=== PATIENT | female | born 1990 | race Caucasian/White ===

== ENCOUNTER 2022-06-13 13:20 | Outpatient (CLI) | payer BC, SELFPAY ==
--- OUTSIDE RECORDS SUMMARY | 2022-06-13 13:26 | XMS_ITS | Clinical Summary ---
:1990 Author Organization [employer] [place] [address] Care Team Providers Name Role Phone Pcp, No Primary Care Provider Unavailable Allergies Active Allergy Reactions Severity Noted Date Comments Amoxicillin Hives 01/04/2010 Azithromycin Hives 01/04/2010 Ciprofloxacin Hives 01/04/2010 Sulfa (Sulfonamide Antibiotics) Hives 2 Medications No known medications Active Problems Problem Noted Date Luisa (monopolar) single episode or unspecified Encounters Date Type Specialty Care Team Description 04/08/2022 Office Visit Cass Emery MD Throa t Problem (X 1 week/Sores on t ongue that started on ) 04/08/2022 Travel from Last 3 Months Immunizations Name Administration Dates Next Due Influenza, IIV3 (Age >=3 years) 10/09/2008 Family History Medical History Relation Name Comments Diabetes Maternal Grandmother Relation Name Status Comments Maternal Grandmother Social History Tobacco Use Types Packs/Day Years Used Date Current Every Day Smoker Cigarettes 0.5 Smokeless Tobacco: Never Used Alcohol Use Standard Drinks/Week Comments No 0 (1 standard drink = 0.6 oz pure alcoho l) Sex Assigned at Date Recorded Not on file Obstetrics History Para Term AB IAB SAB Ectopic Multiple Living Live Births 1 1 1 0 0 0 0 0 0 1 Date Outcome GA Total Labor/2nd/3rd Weight Sex Delivery Anes PTL Nadya A 1 A5 Name Clin Labor 12/26 Term 39w 6h 00m/ 3.35 kg M Vag Epid /2008 0d (7 lb 6 ral oz) Last Filed Vital Signs Vital Sign Reading Time Taken Comments Blood Pressure 104/71 04/08/2022 2:12 PM CDT Pulse 105 04/08/2022 2:12 PM CDT Temperature 36.9 ??C (98.4 ??F) 04/08/2022 2:12 PM CDT Respiratory Rate - - Oxygen Saturation 97% 04/08/2022 2:12 PM CDT Inhaled Oxygen Concentration - - Weight 40.7 kg (89 lb 12.8 oz) 04/08/2022 2:12 PM CDT Height 154.9 cm (5' 1) 04/08/2022 2:12 PM CDT Body Mass Index 16.97 04/08/2022 2:12 PM CDT Plan of Treatment Health Maintenance Due Date Last Done Comments COVID-19 vaccine series (#1) 1988 Pneumococcal series for age 19-64 1994 (1 - PCV) Tdap 1999 Depression screening for age 12+ 2000 Hepatitis C screening for age 0703/30/2006 18-79 Tetanus booster 2008 Influenza for age 9-49 05/19/2022 10/09/2008 Pap test for age 21-65 07/02/2022 07/02/2019, 07/02/2019, 05/01/2018, Additional history exists BMI (ht and wt on same day) for 04/08/2023 04/08/2022 age 18+ Procedures Procedure Name Priority Date/Time Associated Diagnosis Comme nts THROAT RAPID STREP Routine 04/08/2022 2:17 PM Sore throat Res ults for this ONLY CLINIC CDT procedure are i n the results section. from Last 3 Months Results THROAT RAPID STREP ONLY CLINIC (04/08/2022 2:17 PM CDT) Analysis Performed At Patho logist Time Signature THROAT RAPID Negative 04/08/2022 [facility] STREP A 2:31 PM CDT [facility] Specimen Anatomical Collection Method Collection Time Receive d Time (Source) Location / / Volume Laterality Throat SPECIMEN FROM Non-Blood / 04/08/2022 2:17 PM 04/08/20 2:21 THROAT / Unknown Unknown CDT PM CDT Cass Emery MD MICROBIOLOGY Performing Organization Address City/State/ZIP Code Phon e Number [facility] [address] [place] [address] from Last 3 Months Insurance Payer Benefit Plan / Subscriber ID Effective Dates Phone Addre ss Type Group [id number] 2017-Present [address] [place] [address] Care Teams Pollution Control Technician Relationship Specialty Start Date End Date Pcp, No PCP - General 04/08/22 .
== END 2022-06-13 13:21 | disposition home or self-care (01) ==
LOC: NFLDREF 13:24
PROVIDERS: PCP Family Medicine; Visit Provider Family Medicine
DX: N39.0 Urinary tract infection, site not specified (principal)
CPT/HCPCS: 87086; 87186

== ENCOUNTER 2023-06-11 12:50 | Emergency (ER) | payer BC, SELFPAY ==
[2023-06-11 13:00] VITALS: BP 106/69; PULSE 99; RESP 16; TEMP 36.9; O2SAT 99; BMI 17.9
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
[2023-06-11] MEDS: 0.9 % SODIUM CHLORIDE 1000 ml 1,000 ML 2000 ML IV (13:35)
[2023-06-11] MEDS: KETOROLAC 30 MG/ML inj IVP (13:37)
[2023-06-11] MEDS: ONDANSETRON 2 MG/ML inj 4 MG IVP (13:38)
== END 2023-06-11 14:41 | disposition home or self-care (01) ==
PROVIDERS: Emergency Provider Family Medicine; PCP Family Medicine
DX: R51.9 Headache, unspecified (principal); W51.XXXA Accidental striking against or bumped into by another person, initial encounter
CPT/HCPCS: 96374; 96375; 99283; 99284; J1885; J2405; J7030

== ENCOUNTER 2024-07-09 21:02 | Emergency (ER) | payer BC, SELFPAY ==
[2024-07-09 21:13] VITALS: BP 133/66; PULSE 104; RESP 16; TEMP 36.7; O2SAT 98; BMI 18.1
--- NOTE | 2024-07-09 22:20 | ED_ITS ---
HPI - General Adult General Date Seen: 07/09/24 Chief complaint: Urogenital Problems, Female Stated complaint: painful lump in private area Time Seen by Provider: 07/09/24 22:18 History of Present Illness HPI narrative: This is a 34-year-old female presenting to the ER today with a painful lump on her left labia. She awoke with a lump yesterday morning and is getting gradually bigger and more painful throughout the day. She has been taking Tylenol and ibuprofen without much improvement in pain. No fever. She has a past medical history of depression, anemia, cervical intraepithelial neoplasia grade 2, endometriosis. She presents to the ER today with a swollen, red, painful lump on her left labia majora. It started a day or 2 ago as a small bump that she thought was initially an ingrown hair. It has been getting larger and more painful since then. Now it is probably a cm or 2 in size. No other symptoms. Perhaps mild nausea from pain. No fever or chills. No abdominal pain. No dysuria or urinary symptoms. No vaginal discharge. Related Data Previous Rx's ?Medication ?Instructions ?Recorded clindamycin HCl 300 mg capsule 300 mg PO TID #21 caps 07/09/24 Allergies Allergy/AdvReac Type Severity Reaction Status Date / Time clavulanic acid Allergy Mild Hives Verified 02/05/24 16:07 erythromycin base Allergy Mild Rash Verified 02/05/24 16:07 penicillin V Allergy Mild Hives Verified 02/05/24 16:07 Sulfa (Sulfonamide Allergy Mild Hives Verified 02/05/24 16:07 Antibiotics) [facility] Otitis media ?H66.90 - Otitis media, unspecified, unspecified ear (ICD-10) Cervical intraepithelial neoplasia grade 2 ?N87.1 - Moderate cervical dysplasia (ICD-10) 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 (ICD-10) History of anemia ?Z86.2 - Personal history of diseases of the blood and blood-forming organs and certain disorders involving the immune mechanism (ICD-10) Endometriosis determined by laparoscopy (11/2018) ?N80.9 - Endometriosis, unspecified (ICD-10) Depression ?F32.A - Depression, unspecified (ICD-10) Constipation ?K59.00 - Constipation, unspecified (ICD-10) Surgical History History of laparoscopy (11/13/18) ?Z98.890 - Other specified postprocedural states (ICD-10) History of bilateral salpingectomy (06/15/21) ?Z90.79 - Acquired absence of other genital organ(s) (ICD-10) Status post emergency section (03/17/21) ?Z98.891 - History of uterine scar from previous surgery (ICD-10) History of tooth extraction (2016) ?K08.409 - Partial loss of teeth, unspecified cause, unspecified class (ICD- 10) History of loop electrosurgical excision procedure (LEEP) of cervix (06/01/17) ?Z98.890 - Other specified postprocedural states (ICD-10) History of dilation and curettage (07/22/19) ?Z98.890 - Other specified postprocedural states (ICD-10) History of breast biopsy (11/02/17) ?Z98.890 - Other specified postprocedural states (ICD-10) Family History Paternal Grandmother Breast cancer, Onset Age: 40 Unknown FH: prostate cancer Uncle Diabetes Other No family history of cardiovascular disease No family history of colorectal cancer Social History Narrative: Vqnh-bv-mgma mom. . tobacco use 8-9/ day x 14 years. No alcohol use. Smoking Status: Current every day smoker Do you use any of these nicotine containing products: None Second hand tobacco smoke exposure: No How often do you have a drink containing alcohol: never AUDIT-C Alcohol total score: 0 Non-prescribed substance use: denies use Exam Narrative: Exam Narrative: Constitutional: Appears well-developed and well-nourished. Alert. Conversant. Non toxic. HENT: Head: Atraumatic. Nose: Nose normal. Mouth/Throat: Oral mucosa is clear and moist. no trismus. Eyes: Conjunctivae normal. EOM normal. Pupils equal, round, and reactive to light. No scleral icterus. Neck: Normal range of motion. Neck supple. No tracheal deviation present. Cardiovascular: Brisk cap refill Pulmonary/Chest: Effort normal. No stridor. No respiratory distress. Abdominal: Soft. Bowel sounds normal. No distension. No mass. No tenderness. No rebound. No guarding. Musculoskeletal: RUE: Normal range of motion. No tenderness. No deformity LUE: Normal range of motion. No tenderness. No deformity RLE: Normal range of motion. No edema. No tenderness. No deformity LLE: Normal range of motion. No edema. No tenderness. No deformity Pelvic: External exam performed with female senior hr business partner. There is a 1 x 2 cm area of erythema and induration on the left labia majora. In the center of this there is a 5 mm area of darker red erythema. There is also a roughly a 1 cm area of fluctuance concerning for possible abscess. No other signs of spreading redness onto her perineum or proximal thigh or abdominal wall. Neurological: Alert and oriented to person, place, and time. Normal strength. CN II-VII intact. No sensory deficit. GCS eye subscore is 4. GCS verbal subscore is 5. GCS motor subscore is 6. Normal coordination Skin: Skin is warm and dry. No rash noted. No pallor. Normal capillary refill. Psychiatric: Normal mood. Normal affect. Const: Vital Signs, click to edit/add: Vital Signs - 24 hr 07/09/24 21:13 07/09/24 23:47 07/09/24 23:52 Temperature 98.0 F 98.0 F 98.0 F Pulse Rate [Pulse Oximeter] 104 H 89 89 Respiratory Rate 16 16 16 Blood Pressure [Ri ght Upper Arm] 133/66 125/74 125/74 Pulse Oximetry 98 98 Oxygen Delivery Me thod Room Air Room Air Course Vital Signs Vital signs: Initial Vital Signs Temperature 98.0 F 07/09/24 21:13 Temperature Source Temporal Artery Scan 07/09/24 21:13 Pulse Rate 104 H 07/09/24 21:13 Pulse Rhythm Regular 07/09/24 21:13 Respiratory Rate 16 07/09/24 21:13 Blood Pressure 133/66 07/09/24 21:13 Blood Pressure Mean 88 07/09/24 21:13 Blood Pressure Position Sitting 07/09/24 21:13 Pulse Oximetry 98 07/09/24 21:13 Oxygen Delivery Method Room Air 07/09/24 21:13 Vital Signs Temperature 98.0 F 07/09/24 21:13 Pulse Rate 104 H 07/09/24 21:13 Respiratory Rate 16 07/09/24 21:13 Blood Pressure 133/66 07/09/24 21:13 Pulse Oximetry 98 07/09/24 21:13 Oxygen Delivery Method Room Air 07/09/24 21:13 Temperature 98.0 F 07/09/24 23:52 Pulse Rate 89 07/09/24 23:52 Respiratory Rate 16 07/09/24 23:52 Blood Pressure 125/74 07/09/24 23:52 Pulse Oximetry 98 07/09/24 23:47 Oxygen Delivery Method Room Air 07/09/24 23:47 Medications Administered Medications: Discontinued Medications Generic Name Dose Route Start Last Admin Trade Name Venita PRN Reason Stop Dose Admin Clindamycin HCl 300 mg 07/09/24 22:35 07/09/24 22:47 Clindamycin 150 Mg Capsule PO 07/09/24 22:36 300 mg ONCE ONE Administration Lidocaine/Epinephrine 20 ml 07/09/24 22:35 07/09/24 22:47 Lidocaine 1%-Epi 1:100,000 INFILTRATI 07/09/24 22:36 20 ml ONCE ONE Administration Medical Decision Making MDM Narrative Medical decision making narrative: This patient presents with left labia majora pain and redness. Presentation concerning for probable abscess in the left major within overlying skin cellulitis. Suspect the source of the abscess was an ingrown he had air on the left labia majora. This is not consistent with a Bartholin's gland abscess or [place]'s abscess and does not involve the labia minora. Pt has signs of an abscess. I&D performed and successfully expressed purulent drainage; see procedure note. No signs of serious infx like necrotizing fasciitis or rapid cellulitis given fever curve, spread of erythema over past 24 hours, no crepitance to tissues, no sensation change to tissues. Will need wound cares q day. Plan home w/ primary; may return to ED for wound check in 48 hours if cannot arrange follow-up with primary. Antibiotics given as has some erythema and concerns about cellulitis. Will start her on clindamycin since she has allergy to penicillins and sulfa. Suspect possible MRSA causing this abscess. Warning signs for wound given on discharge instructions and verbally; see d/c instructions. Will treat her with clindamycin for the skin infection. Suspect probably MRSA . Wound culture pending.. First dose clinic given here in the ER. Discharge Plan Discharge Clinical Impression: Abscess of genital labia Patient Disposition: Home, Self-Care Condition: Stable Instructions: Abscess (ED), Incision and Drainage (ED) Additional Instructions: As we discussed, it will typically take 2-3 days for the infection to start to get significantly better while your on antibiotics. ED abscess will probably continue to drain small amounts of pus and blood for the next couple of days and then will heal up. Watch the infected area carefully and if it is getting worse (spreading swelling, spreading redness, worsening pain, or if you developing high fevers) come back to the ER right away. Please take the antibiotics 3 times daily as prescribed. We will contact you by phone if your wound culture grows any unusual bacteria causing your infection or if we need to change her antibiotics. Prescriptions: New clindamycin HCl 300 mg capsule 300 mg PO TID Qty: 21 0RF Follow Up/Referrals: Deandra Montaño MD [Primary Care Provider] - Stand Alone [facility]: [facility] Info Instructions Procedures I/D Type: abscess Site: other (Left labia majora skin abscess) Verification/time out: correct patient and correct site Human Resources Coordinator 1, if any: Nurse, Lis, present at the bedside for assistance. Anesthesia I&D: lidocaine 1% and with Epi Amount of anesthesia used (mls): 2 Side (if applicable): left Technique: incised with #11 blade Amount of fluid expressed (mL): 2 Irrigation: No Packing used?: none
--- OUTSIDE RECORDS SUMMARY | 2024-07-09 22:42 | XMS_ITS | Clinical Summary ---
Author Organization [employer] [facility] [employer] [facility] Address [place], [place] [address] Care Team Providers Care Hospital Coder Name Role Phone Pcp, No Primary Care Provider Unavailabl e Allergies Active Allergy Reactions Criticality Noted Date Comments Amoxicillin Hives 01/04/2010 Azithromycin Hives 01/04/2010 Ciprofloxacin Hives 01/04/2010 Sulfa (Sulfonamide Antibiotics) Hives 03/19 Medications No known medications Active Problems Problem Noted Date Diagnosed Date Luisa (monopolar) single episode or unspecified Immunizations Name Administration Dates Next Due Influenza, IIV3 (Age >=3 years) 10/09/2008 Family History Medical History Relation Name Comments Diabetes Maternal Grandmother Relation Name Status Comments Maternal Grandmother Social History Tobacco Use Types Packs/Day Years Used Date Smoking Tobacco: Every Day Cigarettes Smokeless Tobacco: Never Alcohol Use Standard Drinks/Week Comments No 0 (1 standard drink = 0.6 oz pur e alcohol) Social Connections Answer Date Recorded Frequency of Communication with Friends and Fami ly Not on file 04/08/2022 Sex and Gender Information Value Date Recorded Sex Assigned at Not on file Gender Identity Not on file Sexual Orientation Not on file Obstetrics History Para Term AB IAB SAB Ectopic Multiple Livin g Live Births 1 1 1 0 0 0 0 0 0 1 Date Outcome GA Total Labor Labor/2nd/3rd Weight Sex Type Anes PTL Nadya A1 A5 Name Clin 12/26 Term 39w 0d 6h 00m/ 3.35 kg (7 lb 6 oz) M Vag Epidural Last Filed Vital Signs Vital Sign Reading Time Taken Comments Blood Pressure 104/71 04/08/2022 2:12 PM CDT Pulse 105 04/08/2022 2:12 PM CDT Temperature 36.9 ??C (98.4 ??F) 04/08/2022 2:12 PM CD T Respiratory Rate - - Oxygen Saturation 97% 04/08/2022 2:12 PM CDT Inhaled Oxygen Concentration - - Weight 40.7 kg (89 lb 12.8 oz) 04/08/2022 2:12 P M CDT Height 154.9 cm (5' 1) 04/08/2022 2:12 PM CDT Body Mass Index 16.97 04/08/2022 2:12 PM CDT Plan of Treatment Health Maintenance Due Date Last Done Comments Tdap 1999 Depression screening for age 12+ 2000 HIV for age 15-65 2003 Hepatitis C screening for age 18-79 2006 Tetanus booster 2008 Pap test for age 21-65 07/02/2022 9, 07/02/2019, 05/01/2018, Additional history exists BMI (ht and wt on same day) for age 18+ 04/08/2023 04/08/2022 COVID-19 vaccine series (2023- season) 2024 Influenza for age 9-49 05/19/2024 10/09/2008 Pneumococcal series for age 6-64 Aged Out No longer eligible based on patient's age to complete this topic Procedures Procedure Name Priority Date/Time Associated Diagnosis Comments PROFESSOR OF PHYSICAL EDUCATION THIN PREP PAP SCREEN IMAGED Routine 07/02/2019 2:10 PM CDT from Last 3 Months or Most Recently Relevant to Health Maintenance Results * PROFESSOR OF PHYSICAL EDUCATION THIN PREP PAP SCREEN IMAGED (07/02/2019 2:10 PM CDT) Case Report Gynecologic Cytology Report ? Case: [id number] ? Authorizing Provider: ??Alysia Jennings MD ?Collected: ? 07/02/2019 1410 ? Ordering Location: ? [facility] ?Received: ?07/03/2019 1845 ? First Screen: ?Juju Alfaro ? Specimen: ?PROFESSOR OF PHYSICAL EDUCATION ThinPrep Vial Screening, Cervical/Vaginal ? 07/12/2019 2:54 PM CDT [facility] INTERPRETATION/ RESULT NEGATIVE FOR INTRAEPITHELIAL LESION OR MALIGNANCY (NIL) (none) 07/12/2019 2:54 PM CDT [facility] IMEN ADEQUACY Satisfactory for evaluation No endocervical component seen in a patient 07/12/2019 2:54 PM CDT [facility] HPV REQUEST HPV and PAP 07/12/2019 2:54 PM CDT [facility] Date of LMP 05/06/2019 07/12/2019 2:54 PM CDT [facility] Last Pap Date 05/01/2018 07/12/2019 2:54 PM CDT [facility] Last Pap Result NIL 9 2:54 PM CDT [facility] Comment:-HPV Menstrual Status 07/12/2019 2:54 PM CDT [facility] Automated Review Successful 07/12/2019 2:54 PM CDT [facility] Comment:Specimen processed s uccessfully by automated plaster tender device, ThinPrep Imaging System, [employer] ANCILLARY TESTING PROFESSOR OF PHYSICAL EDUCATION HPV Ordered, Please see separate report 07/12/2019 2:54 PM CDT [facility] ENTRAL LABORATORY Note The pap test is a screening technique, not a diagnostic procedure. ??It is used primarily to screen for squamous cancers and precursor lesions. ??Published studies have shown that it is subject to both false negative and false positive results. ??The pap test should not be used as the sole means to diagnose or exclude pre-malignant and malignant lesions. Cytology is screened and interpreted at [facility], Central Laboratory - [address], [place] [address] [facility] - [address]; [place] [address] and [facility] - [address]; [place] [address] and [facility] [address]; [place] [address] 07/12/2019 2:54 PM CDT [facility]-C ENTRAL LABORATORY Other (Cervical/Vagina l) 07/02/2019 2:10 PM CDT 07/03/2019 6:45 PM CDT Alysia Jennings MD PATHOLOGY/CYTOLOGY [facility] [address] [place] [address], [place] from Last 3 Months or Most Recently Relevant to Health Maintenance Care Teams Hospital Coder Relationship Specialty Start Date End Date Pcp, No . PCP - General 04/08/22
[2024-07-09] MEDS: LIDOCAINE 1%-EPI 1:100,000 20 ML INFILTRATI (22:47)
[2024-07-09] MEDS: CLINDAMYCIN 150 MG CAPSULE 300 MG PO (22:47)
[2024-07-09 23:47] VITALS: BP 125/74; PULSE 89; RESP 16; TEMP 36.7; O2SAT 98
[2024-07-09 23:52] VITALS: BP 125/74; PULSE 89; RESP 16; TEMP 36.7
--- NOTE | 2024-07-11 07:42 | ED_ITS ---
HPI - General Adult General Chief complaint: Urogenital Problems, Female Stated complaint: painful lump in private area Time Seen by Provider: 07/09/24 22:18 History of Present Illness HPI narrative: This is an addendum to my recent ER note for this patient. Patient presented with a skin abscess on her left labia majora. It was drained in the ER. Wound culture came back this morning growing E coli, pansensitive. Since there was some overlying cellulitis we did send her out on antibiotics (clindamycin to cover for skin kevin and possible MRSA). However culture grows E coli. Clindamycin is not highly effective against E coli. Therefore will have the patient discontinue the clindamycin and switched to cephalexin 500 mg t.i.d. for 5 days. Contacted the patient by phone this morning at 7:40 a.m.. She verbalizes understanding. She will discontinue the clinda, she will start the cephalexin. Prescription to [facility] pharmacy. Related Data Previous Rx's ?Medication ?Instructions ?Recorded clindamycin HCl 300 mg capsule 300 mg PO TID #21 caps 07/09/24 cephalexin 500 mg capsule 500 mg PO TID #15 caps 07/11/24 Allergies Allergy/AdvReac Type Severity Reaction Status Date / Time clavulanic acid Allergy Mild Hives Verified 02/05/24 16:07 erythromycin base Allergy Mild Rash Verified 02/05/24 16:07 penicillin V Allergy Mild Hives Verified 02/05/24 16:07 Sulfa (Sulfonamide Allergy Mild Hives Verified 02/05/24 16:07 Antibiotics) [facility] Medical History Otitis media ?H66.90 - Otitis media, unspecified, unspecified ear (ICD-10) Cervical intraepithelial neoplasia grade 2 ?N87.1 - Moderate cervical dysplasia (ICD-10) 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 (ICD-10) History of anemia ?Z86.2 - Personal history of diseases of the blood and blood-forming organs and certain disorders involving the immune mechanism (ICD-10) Endometriosis determined by laparoscopy (11/2018) ?N80.9 - Endometriosis, unspecified (ICD-10) Depression ?F32.A - Depression, unspecified (ICD-10) Constipation ?K59.00 - Constipation, unspecified (ICD-10) Surgical History History of laparoscopy (11/13/18) ?Z98.890 - Other specified postprocedural states (ICD-10) History of bilateral salpingectomy (06/15/21) ?Z90.79 - Acquired absence of other genital organ(s) (ICD-10) Status post emergency section (03/17/21) ?Z98.891 - History of uterine scar from previous surgery (ICD-10) History of tooth extraction (2016) ?K08.409 - Partial loss of teeth, unspecified cause, unspecified class (ICD- 10) History of loop electrosurgical excision procedure (LEEP) of cervix (06/01/17) ?Z98.890 - Other specified postprocedural states (ICD-10) History of dilation and curettage (07/22/19) ?Z98.890 - Other specified postprocedural states (ICD-10) History of breast biopsy (11/02/17) ?Z98.890 - Other specified postprocedural states (ICD-10) Family History Paternal Grandmother Breast cancer, Onset Age: 40 Unknown FH: prostate cancer Uncle Diabetes Other No family history of cardiovascular disease No family history of colorectal cancer Social History Narrative: Sclj-ml-[id number] mom. . tobacco use 8-9/ day x 14 years. No alcohol use. Smoking Status: Current every day smoker Do you use any of these nicotine containing products: None Second hand tobacco smoke exposure: No How often do you have a drink containing alcohol: never AUDIT-C Alcohol total score: 0 Non-prescribed substance use: denies use Course Vital Signs Vital signs: Initial Vital Signs Temperature 98.0 F 07/09/24 21:13 Temperature Source Temporal Artery Scan 07/09/24 21:13 Pulse Rate 104 H 07/09/24 21:13 Pulse Rhythm Regular 07/09/24 21:13 Respiratory Rate 16 07/09/24 21:13 Blood Pressure 133/66 07/09/24 21:13 Blood Pressure Mean 88 07/09/24 21:13 Blood Pressure Position Sitting 07/09/24 21:13 Pulse Oximetry 98 07/09/24 21:13 Oxygen Delivery Method Room Air 07/09/24 21:13 Vital Signs Temperature 98.0 F 07/09/24 21:13 Pulse Rate 104 H 07/09/24 21:13 Respiratory Rate 16 07/09/24 21:13 Blood Pressure 133/66 07/09/24 21:13 Pulse Oximetry 98 07/09/24 21:13 Oxygen Delivery Method Room Air 07/09/24 21:13 Temperature 98.0 F 07/09/24 23:52 Pulse Rate 89 07/09/24 23:52 Respiratory Rate 16 07/09/24 23:52 Blood Pressure 125/74 07/09/24 23:52 Pulse Oximetry 98 07/09/24 23:47 Oxygen Delivery Method Room Air 07/09/24 23:47 Medications Administered Medications: Discontinued Medications Generic Name Dose Route Start Last Admin Trade Name Freq PRN Reason Stop Dose Admin Clindamycin HCl 300 mg 07/09/24 22:35 07/09/24 22:47 Clindamycin 150 Mg Capsule PO 07/09/24 22:36 300 mg ONCE ONE Administration Lidocaine/Epinephrine 20 ml 07/09/24 22:35 07/09/24 22:47 Lidocaine 1%-Epi 1:100,000 INFILTRATI 07/09/24 22:36 20 ml ONCE ONE Administration Discharge Plan Discharge Clinical Impression: Abscess of genital labia Patient Disposition: Home, Self-Care Condition: Stable Instructions: Abscess (ED), Incision and Drainage (ED) Additional Instructions: As we discussed, it will typically take 2-3 days for the infection to start to get significantly better while your on antibiotics. ED abscess will probably continue to drain small amounts of pus and blood for the next couple of days and then will heal up. Watch the infected area carefully and if it is getting worse (spreading swelling, spreading redness, worsening pain, or if you developing high fevers) come back to the ER right away. Please take the antibiotics 3 times daily as prescribed. We will contact you by phone if your wound culture grows any unusual bacteria causing your infection or if we need to change her antibiotics. Prescriptions: New clindamycin HCl 300 mg capsule 300 mg PO TID Qty: 21 0RF cephalexin 500 mg capsule 500 mg PO TID Qty: 15 0RF Follow Up/Referrals: Deandra Montaño MD [Primary Care Provider] - Stand Alone Forms: [employer] Info Instructions
== END 2024-07-09 23:53 | disposition home or self-care (01) ==
PROVIDERS: Emergency Provider Emergency Medicine; PCP Family Medicine
DX: N76.4 Abscess of vulva (principal)
CPT/HCPCS: 56405; 10060; 87070; 87186; 99281; 99282; 99284; A9270

== ENCOUNTER 2024-07-23 13:56 | Outpatient (CLI) | payer BC, SELFPAY ==
--- OUTSIDE RECORDS SUMMARY | 2024-07-23 13:59 | XMS_ITS | Clinical Summary ---
Author Organization [employer] [facility] [employer] [facility] Address [place], [place] [address] Care Team Providers Care Criminal Intelligence Specialist Name Role Phone Pcp, No Primary Care [...] Procedure Name Priority Date/Time Associated Diagnosis Comments SUPERVISOR COSTUMING THIN PREP PAP SCREEN IMAGED Routine 07/02/2019 2:10 PM CDT from Last 3 Months or Most Recently Relevant to Health Maintenance Results * SUPERVISOR COSTUMING THIN PREP PAP SCREEN IMAGED (07/02/2019 2:10 PM CDT) Case Report Gynecologic Cytology Report ? Case: [id number] ? Authorizing Provider: ??Alysia Jennings MD ?Collected: ? 07/02/2019 1410 ? Ordering Location: ? [facility] ?Received: ?07/03/2019 1845 ? First Screen: ?Juju Alfaro ? Specimen: ?SUPERVISOR COSTUMING ThinPrep Vial Screening, Cervical/Vaginal ? 07/12/2019 2:54 PM CDT [facility] INTERPRETATION/ RESULT NEGATIVE FOR INTRAEPITHELIAL LESION OR MALIGNANCY (NIL) (none) 07/12/2019 2:54 PM CDT [facility] IMEN ADEQUACY Satisfactory for evaluation No endocervical component seen in a patient 07/12/2019 2:54 PM CDT [facility] HPV REQUEST HPV and PAP 07/12/2019 2:54 PM CDT [facility] Date of LMP 05/06/2019 07/12/2019 2:54 PM CDT [facility] Last Pap Date 05/01/2018 07/12/2019 2:54 PM CDT [facility] Last Pap Result NIL 9 2:54 PM CDT [facility] Comment:-HPV Menstrual Status 07/12/2019 2:54 PM CDT [facility] Automated Review Successful 07/12/2019 2:54 PM CDT [facility] Comment:Specimen processed s uccessfully by automated laborer construction or leak gang device, ThinPrep Imaging System, [employer] ANCILLARY TESTING SUPERVISOR COSTUMING HPV Ordered, Please see separate report 07/12/2019 [...] lesions. Cytology is screened and interpreted at [facility], Central Laboratory - [address], [place] [address] and [facility] - [address]; [place] [address] [address] [facility] - [address]; [place] [address] and [facility] [address]; [place] [address] 07/12/2019 2:54 PM CDT [facility]-C ENTRAL LABORATORY Other (Cervical/Vagina l) 07/02/2019 2:10 PM CDT 07/03/2019 6:45 PM CDT Alysia Jennings MD PATHOLOGY/CYTOLOGY [facility]-CENTRAL LABORATORY [address] [place] [address], [place] from Last 3 Months or Most Recently Relevant to Health Maintenance Care Teams Criminal Intelligence Specialist Relationship Specialty Start Date End Date Pcp, No . PCP - General 04/08/22
[2024-07-27 06:15] LABS: HPV Source Cervical; HPV, High Risk by TMA Not Detected
== END 2024-07-23 13:57 | disposition home or self-care (01) ==
PROVIDERS: PCP Family Medicine; Visit Provider Registered Nurse
DX: Z12.4 Encounter for screening for malignant neoplasm of cervix (principal)
CPT/HCPCS: 87624; 87625; 88141; 88142

== ENCOUNTER 2024-07-25 10:46 | Outpatient (CLI) | payer BC, SELFPAY ==
--- OUTSIDE RECORDS SUMMARY | 2024-07-29 12:03 | XMS_ITS | Clinical Summary ---
Author Organization [employer] [facility] Address [place], [place] [address] Care Team Providers Care Artist Relationship Manager Name Role Phone Pcp, No Primary Care [...] Procedure Name Priority Date/Time Associated Diagnosis Comments SURGICAL DEVICE SALES REPRESENTATIVE THIN PREP PAP SCREEN IMAGED Routine 07/02/2019 2:10 PM CDT from Last 3 Months or Most Recently Relevant to Health Maintenance Results * SURGICAL DEVICE SALES REPRESENTATIVE THIN PREP PAP SCREEN IMAGED (07/02/2019 2:10 PM CDT) Case Report Gynecologic Cytology Report ? Case: [id number] ? Authorizing Provider: ??Alysia Jennings MD ?Collected: ? 07/02/2019 1410 ? Ordering Location: ? [facility] ?Received: ?07/03/2019 1845 ? First Screen: ?Juju Alfaro ? Specimen: ?SURGICAL DEVICE SALES REPRESENTATIVE ThinPrep Vial Screening, Cervical/Vaginal ? 07/12/2019 2:54 PM CDT [facility] INTERPRETATION/ RESULT NEGATIVE FOR INTRAEPITHELIAL LESION OR MALIGNANCY (NIL) (none) 07/12/2019 2:54 PM CDT [facility] IMEN ADEQUACY Satisfactory for evaluation No endocervical component seen in a patient 07/12/2019 2:54 PM CDT [facility] HPV REQUEST HPV and PAP 07/12/2019 2:54 PM CDT [facility] Date of LMP 05/06/2019 07/12/2019 2:54 PM CDT [facility] Last Pap Date 05/01/2018 07/12/2019 2:54 PM CDT [facility] Last Pap Result NIL 9 2:54 PM CDT [facility] Comment:-HPV Menstrual Status 07/12/2019 2:54 PM CDT [facility] Automated Review Successful 07/12/2019 2:54 PM CDT [facility] Comment:Specimen processed s uccessfully by automated bicycle subassembler device, ThinPrep Imaging System, [employer] ANCILLARY TESTING SURGICAL DEVICE SALES REPRESENTATIVE HPV Ordered, Please see separate report 07/12/2019 [...] lesions. Cytology is screened and interpreted at [facility], Central Laboratory - [address], [place] [address] and [facility] - [address]; [place] [address] and [facility] - [address]; [place] [address] and [facility] [address]; [place] [address] 07/12/2019 2:54 PM CDT [facility]-C ENTRAL LABORATORY Other (Cervical/Vagina l) 07/02/2019 2:10 PM CDT 07/03/2019 6:45 PM CDT Alysia Jennings MD PATHOLOGY/CYTOLOGY [facility]-CENTRAL LABORATORY [address] [place] [address], [place] from Last 3 Months or Most Recently Relevant to Health Maintenance Care Teams Artist Relationship Manager Relationship Specialty Start Date End Date Pcp, No . PCP - General 04/08/22
== END 2024-07-25 10:47 | disposition home or self-care (01) ==
LOC: NFLDREF 07-29 12:01
PROVIDERS: PCP Family Medicine; Referring Provider Family Medicine
DX: N30.01 Acute cystitis with hematuria (principal); B96.20 Unspecified Escherichia coli [E. coli] as the cause of diseases classified elsewhere
CPT/HCPCS: 87086; 87186

== ENCOUNTER 2024-10-13 14:39 | Emergency (ER) | payer BC, SELFPAY ==
[2024-10-13] VITALS (12 sets, daily range): BP systolic 98–113; BP diastolic 68–84; PULSE 76–113; RESP 16; TEMP 37; O2SAT 96–100; BMI 17.0
--- OUTSIDE RECORDS SUMMARY | 2024-10-13 14:40 | XMS_ITS | Clinical Summary ---
Author Organization [email or web address] [facility] [employer] Address [place], [place] [address] Care Team Providers Care Film Developing Machine Operator Name Role Phone Pcp, No Primary Care [...] and Fami ly Not on file 04/08/2022 Comments No Sex and Gender Information Value Date Recorded Sex Assigned at Not on file Legal Sex Female 7:51 AM JUDICIAL REGISTRAR Gender Identity Not on file Sexual Orientation [...] 105 04/08/2022 2:12 PM CDT Temperature 36.9 C (98.4 F) 04/08/2022 2:12 PM CDT Respiratory Rate - [...] 9-49 05/19/2024 10/09/2008 Pneumococcal series for age 6-49 Aged Out No longer eligible based on patient's age to complete this topic Procedures Procedure Name Priority Date/Time Associated Diagnosis Comments DEFENSIVE SECONDARY COACH THIN PREP PAP SCREEN IMAGED Routine 07/02/2019 2:10 PM CDT from Last 3 Months or Most Recently Relevant to Health Maintenance Results * DEFENSIVE SECONDARY COACH THIN PREP PAP SCREEN IMAGED (07/02/2019 2:10 PM CDT) Case Report Gynecologic Cytology Report Case: [id number] Authorizing Provider: Alysia Jennings MD Collected: 07/02/2019 1410 Ordering Location: [facility] Received: 07/03/2019 2688 First Screen: Alfaro Juju Specimen: DEFENSIVE SECONDARY COACH ThinPrep Vial Screening, Cervical/Vaginal 07/12/2019 2:54 PM CDT [facility]-C ENTRAL LABORATORY INTERPRETATION/ RESULT NEGATIVE FOR INTRAEPITHELIAL LESION OR MALIGNANCY (NIL) (none) 07/12/2019 2:54 PM CDT [facility] IMEN ADEQUACY Satisfactory for evaluation No endocervical component seen in a patient 07/12/2019 2:54 PM CDT [facility] HPV REQUEST HPV and PAP 07/12/2019 2:54 PM CDT [facility] Date of LMP 05/06/2019 07/12/2019 2:54 PM CDT [facility] Last Pap Date 05/01/2018 07/12/2019 2:54 PM CDT [facility] Last Pap Result NIL 9 2:54 PM CDT [facility] Comment:-HPV Menstrual Status 07/12/2019 2:54 PM CDT [facility] Automated Review Successful 07/12/2019 2:54 PM CDT [facility] Comment:Specimen processed s uccessfully by automated construction recruiter device, [employer] Imaging System, [employer] ANCILLARY TESTING DEFENSIVE SECONDARY COACH HPV Ordered, Please see separate report 07/12/2019 2:54 PM CDT [facility] Note The pap test is a screening technique, not a diagnostic procedure. It is used primarily to screen for squamous cancers and precursor lesions. Published studies have shown that it is subject to both false negative and false positive results. The pap test should not be used as the sole means to diagnose or exclude pre-malignant and malignant lesions. Cytology is screened and interpreted at [facility], Central Laboratory - [address], [place] [address] and [facility] - [address] [place] [address]; [place] [address] [address] [facility] - [address]; [place] [address] and [facility] [address]; [place] [address] 07/12/2019 2:54 PM CDT [facility] Other (Cervical/Vagina l) 07/02/2019 2:10 PM CDT 07/03/2019 6:45 PM CDT Alysia Jennings MD PATHOLOGY/CYTOLOGY Final Result [facility] LABOR[facility]ORY [address] [place] [address], from Last 3 Months or Most Recently Relevant to Health Maintenance Insurance [facility] Care Teams Film Developing Machine Operator Relationship Specialty Start Date End Date Pcp, No . PCP - General 04/08/22
--- NOTE | 2024-10-13 15:15 | CRLHL7_ITS ---
For Patients: As a result of the Century Cures Act, medical imaging exams and procedure reports are released immediately into your electronic medical record. You may view this report before your referring provider. If you have questions, please contact your health care provider. INDICATION: Left lower quadrant pain, rectal bleeding. TECHNIQUE: CT abdomen and pelvis acquired with 44 cc Isovue 370 IV contrast. COMPARISON: CT abdomen and pelvis September 14. FINDINGS: Lower chest: Unremarkable. Liver: Normal in size and attenuation. No suspicious masses. Gallbladder and bile ducts: No stones or inflammation. No biliary dilatation. Pancreas: No mass or inflammation. Spleen: Normal in size. No masses. Adrenal glands: No suspicious mass. Kidneys: Bilateral kidneys are normal in size with symmetric enhancement. No nephrolithiasis or hydronephrosis. Focus of the lower small hypoattenuating pole of left kidney, too small to characterize. GI tract: There is mild wall thickening of the descending colon and minimal adjacent fat stranding. No evidence of bowel obstruction. No free intraperitoneal air. Vasculature: Abdominal aorta is normal in caliber. Lymph nodes: No lymphadenopathy. Peritoneum/Abdominal Wall: Minimal free fluid in the pelvis. No free intraperitoneal air. Pelvis: Uterus is normal in size and attenuation. Bones: Lumbar vertebral body height and alignment is maintained. No suspicious focal bony lesion. IMPRESSION: 1. Minimal wall thickening of the descending colon with adjacent mild fatty stranding, concerning for infectious /inflammatory colitis in the appropriate clinical settings. Minimal free fluid in the pelvis. No bowel obstruction. Please note that all CT scans at this facility use dose modulation, iterative reconstruction, and/or weight-based dosing when appropriate to reduce radiation dose to as low as reasonably achievable. Dictated by Alma Arshad MD @ 10/13/2024 5:05:52 PM (Electronically Signed)
--- NOTE | 2024-10-13 15:27 | ED.GENADULT ---
HPI - General Adult General Chief complaint: Abdominal Pain Stated complaint: left abdominal pain, blood in stool Time Seen by Provider: 10/13/24 14:59 Source: patient Mode of arrival: ambulatory Limitations: no limitations History of Present Illness HPI narrative: 34-year-old female coming in today complaining of abdominal pain rectal bleeding of started this morning. Patient states that she has had 4 bowel movements today with bright red blood per rectum. She believes perhaps a handful of blood each time. She feels a little lightheaded. She denies any vertigo, chest pain or shortness of breath. She states that yesterday she started having left-sided abdominal discomfort is progressively gotten worse today. Nothing seems to make it better or worse. She does feel very nauseated and has not eaten anything today. She denies any fevers or chills. Her past medical history was reviewed. She denies any family history of gastrointestinal disease. Patient states that she is certain that the bleeding is rectal as she is currently not having her menses and she inserted a finger into the vagina see if blood was coming from the vagina and it was not. Related Data Previous Rx's ?Medication ?Instructions ?Recorded ciprofloxacin HCl 500 mg tablet 500 mg PO BID 10 days #20 tabs 10/13/24 (Cipro) metronidazole 500 mg tablet 500 mg PO TID 10 days #30 tabs 10/13/24 Allergies Allergy/AdvReac Type Severity Reaction Status Date / Time clavulanic acid Allergy Mild Hives Verified 10/13/24 16:13 erythromycin base Allergy Mild Rash Verified 10/13/24 16:13 penicillin V Allergy Mild Hives Verified 10/13/24 16:13 Sulfa (Sulfonamide Allergy Mild Hives Verified 10/13/24 16:13 Antibiotics) Review of Systems Status of ROS: Reports: 10 or more systems reviewed and unremarkable except as noted in History and below [facility] Medical History Otitis media ?H66.90 - Otitis media, unspecified, unspecified ear (ICD-10) Viral upper respiratory infection ?J06.9 - Acute upper respiratory infection, unspecified (ICD-10) Strep pharyngitis ?J02.0 - Streptococcal pharyngitis (ICD-10) Cervical intraepithelial neoplasia grade 2 ?N87.1 - Moderate cervical dysplasia (ICD-10) 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 (ICD-10) History of anemia ?Z86.2 - Personal history of diseases of the blood and blood-forming organs and certain disorders involving the immune mechanism (ICD-10) Endometriosis determined by laparoscopy (11/2018) ?N80.9 - Endometriosis, unspecified (ICD-10) Depression ?F32.A - Depression, unspecified (ICD-10) Constipation ?K59.00 - Constipation, unspecified (ICD-10) Surgical History History of laparoscopy (11/13/18) ?Z98.890 - Other specified postprocedural states (ICD-10) History of bilateral salpingectomy (06/15/21) ?Z90.79 - Acquired absence of other genital organ(s) (ICD-10) Status post emergency section (03/17/21) ?Z98.891 - History of uterine scar from previous surgery (ICD-10) History of tooth extraction (2016) ?K08.409 - Partial loss of teeth, unspecified cause, unspecified class (ICD-10) History of loop electrosurgical excision procedure (LEEP) of cervix (06/01/17) ?Z98.890 - Other specified postprocedural states (ICD-10) History of dilation and curettage (07/22/19) ?Z98.890 - Other specified postprocedural states (ICD-10) History of breast biopsy (11/02/17) ?Z98.890 - Other specified postprocedural states (ICD-10) Family History Paternal Grandmother Breast cancer, Onset Age: 40 Unknown FH: prostate cancer Uncle Diabetes Other No family history of cardiovascular disease No family history of colorectal cancer Social History Narrative: Tcem-ky-hxxv mom. . tobacco use 8-9/ day x 14 years. No alcohol use. Smoking Status: Current every day smoker What tobacco products do you use: cigarettes Do you use any of these nicotine containing products: None Second hand tobacco smoke exposure: No How often do you have a drink containing alcohol: never AUDIT-C Alcohol total score: 0 Non-prescribed substance use: denies use Exam Narrative: Exam Narrative: Well-nourished well-developed patient in no acute distress. Alert and oriented. Answers questions appropriately. Mood and affect are appropriate. Thoughts are goal oriented and rational. No tangential or magical thinking noted. Patient speaks in full sentences without needing to catch her breath. HEENT: Normocephalic atraumatic. Pupils are equally round reactive to light. Extraocular muscles are intact. Conjunctivae are moist without any icterus noted. Moist mucous membranes. Posterior pharynx is normal. Neck is soft without any lymphadenopathy or thyromegaly. No masses are appreciated. Cardiovascular: Heart is regular rate and rhythm S1 and S2 are present without any murmurs. Lungs: Clear to auscultation bilaterally no wheezes rhonchi or rales are appreciated. Patient takes deep breaths without any discomfort. Abdomen: Soft, nondistended, normal bowel sounds. Patient has diffuse left-sided abdominal discomfort. Extremities: Bilateral lower extremities are without edema. Normal DP and PT pulses. Skin: Well perfused without any obvious rashes. Const: Vital Signs, click to edit/add: Vital Signs - 24 hr 10/13/24 14:53 10/13/24 15:41 10/13/24 15:45 Temperature 98.6 F Pulse Rate 85 81 Pulse Rate [Pulse Oximeter] 113 H Respiratory Rate 16 Blood Pressure Blood Pressure [Ri ght Upper Arm] 108/77 Pulse Oximetry 99 100 100 Oxygen Delivery Me thod Room Air 10/13/24 16:00 10/13/24 16:01 10/13/24 16:26 Temperature Pulse Rate 82 80 80 Pulse Rate [Pulse Oximeter] Respiratory Rate Blood Pressure 98/68 Blood Pressure [Ri ght Upper Arm] Pulse Oximetry 100 100 96 Oxygen Delivery Me thod 10/13/24 16:30 10/13/24 16:45 10/13/24 17:00 Temperature Pulse Rate 88 79 77 Pulse Rate [Pulse Oximeter] Respiratory Rate Blood Pressure Blood Pressure [Ri ght Upper Arm] Pulse Oximetry 100 100 100 Oxygen Delivery Me thod 10/13/24 17:01 Temperature Pulse Rate 82 Pulse Rate [Pulse Oximeter] Respiratory Rate 16 Blood Pressure 113/84 Blood Pressure [Ri ght Upper Arm] Pulse Oximetry 99 Oxygen Delivery Me thod Course Course ED Course: IV is established and 1 L of normal saline is started. CBC is unremarkable. Lactate is normal. Chemistries are unremarkable. Normal LFTs. Normal CRP. Normal lipase. Normal UA. Abdominal CT concerning for infectious versus inflammatory colitis. Because she has had symptoms for last 24 hours it is unclear whether not her laboratory markers and white cell count will go up. Because of this we will treat with ciprofloxacin and Flagyl. Patient will need a colonoscopy for definitive diagnosis. As have explaining these things to the patient, she tells me that she has similar episodes about once a month. Vital Signs Vital signs: Initial Vital Signs Temperature 98.6 F 10/13/24 14:53 Temperature Source Temporal Artery Scan 10/13/24 14:53 Pulse Rate 113 H 10/13/24 14:53 Respiratory Rate 16 10/13/24 14:53 Blood Pressure 108/77 10/13/24 14:53 Blood Pressure Mean 87 10/13/24 14:53 Blood Pressure Position Sitting 10/13/24 14:53 Pulse Oximetry 99 10/13/24 14:53 Oxygen Delivery Method Room Air 10/13/24 14:53 Vital Signs Temperature 98.6 F 10/13/24 14:53 Pulse Rate 113 H 10/13/24 14:53 Respiratory Rate 16 10/13/24 14:53 Blood Pressure 108/77 10/13/24 14:53 Pulse Oximetry 99 10/13/24 14:53 Oxygen Delivery Method Room Air 10/13/24 14:53 Temperature 98.6 F 10/13/24 14:53 Pulse Rate 82 10/13/24 17:01 Respiratory Rate 16 10/13/24 17:01 Blood Pressure 113/84 10/13/24 17:01 Pulse Oximetry 99 10/13/24 17:01 Oxygen Delivery Method Room Air 10/13/24 14:53 Medications Administered Medications: Discontinued Medications Generic Name Dose Route Start Last Admin Trade Name Freq PRN Reason Stop Dose Admin Sodium Chloride 1,000 mls @ 1,000 mls/hr 10/13/24 15:15 10/13/24 15:46 0.9 % Sodium Chloride 1000 Ml IV 10/13/24 16:14 1,000 mls/hr .Q1H VERONICA Administration Medical Decision Making MDM Narrative Medical decision making narrative: 34-year-old female with colitis. Concern for ulcerative colitis or Crohn's disease. Potential for infectious colitis but given her history this is not likely. However, without a definitive diagnosis Will treat with Cipro and Flagyl. Patient will follow-up as an outpatient for colonoscopy and further management. Lab Data Lab results reviewed: Yes I reviewed the patient's lab results Labs: Lab Results 10/13/24 10/13/24 Range/Units 15:30 15:35 WBC 4.09 L (4.50-11.00) K/uL RBC 4.63 (4.00-5.20) m/uL Hgb 13.5 (12.0-16.0) gm/dL Hct 41.1 (33.0-51.0) % MCV 89 (80-100) fL MCH 29 (26-34) pg MCHC 33 (32-36) gm/dL RDW Coeff of Bryce 12.9 (11.5-15.5) % Plt Count 173 (140-440) K/uL Neut % (Auto) 61.7 (42.0-72.0) % Lymph % (Auto) 23.7 (20-44) % [place] % (Auto) 11.7 H (0.0-11.0) % Eos % (Auto) 2.4 (0.0-7.0) % Baso % (Auto) 0.5 (0.0-3.0) % Neut # (Auto) 2.50 (1.7-7.0) K/uL Lymph # (Auto) 1.00 (0.90-2.90) K/uL [place] # (Auto) 0.50 (0.00-0.90) K/UL Eos # (Auto) 0.10 (0.00-0.50) K/uL Baso # (Auto) 0.00 (0.00-0.30) K/uL Abs Immat Gran (auto) 0.00 (0.00-0.30) K/uL Imm/Tot Granulo (auto) 0.0 % Sodium 138 (135-149) mmol/L Potassium 3.5 L (3.6-5.1) mmol/L Chloride 106 (96-114) mmol/L Carbon Dioxide 24 (20-32) mmol/L Anion Gap 8 (7-15) mEq/L BUN 11 (5-24) mg/dL Creatinine 0.7 (0.5-1.5) mg/dL Estimated Creat Clear 71.60 Estimated GFR 115 ml/min Glucose 78 (60-115) mg/dL Lactate 0.6 (0.5-1.9) mmol/L Calcium 8.7 (8.4-10.6) mg/dL Total Bilirubin 0.2 (0.1-1.5) mg/dL Direct Bilirubin 0.1 (0.0-0.5) mg/dL AST 17 (12-35) U/L ALT 10 (4-35) U/L Alkaline Phosphatase 43 (40-150) U/L C-Reactive Protein 0.9 (0.5-1.0) mg/dL Total Protein 7.3 (6.0-8.3) g/dL Albumin 4.5 (3.3-5.0) g/dL Lipase 65 (23-300) U/L Urine Color Yellow (Yellow) Urine Appearance Clear (Clear) Urine pH 6.0 (5.0-8.5) Ur Specific [place] 1.020 (1.000-1.030) Urine Protein Negative (Negative) Urine Glucose (UA) Negative (Negative) Urine Ketones Negative (Negative) Urine Blood Negative (Negative) Urine Nitrite Negative (Negative) Urine Bilirubin Negative (Negative) Urine Urobilinogen 0.2 (0.2-1.0) Ur Leukocyte Esterase Negative (Negative) Urine RBC 0-2 (0-2) Urine WBC 0-2 (0-5) Ur Squamous Epith Cells Few (None-Few) Urine Bacteria Few A (None) Urine Mucus Moderate A (None) Urine HCG, Qual Negative (Negative) Imaging Data CT scan - abdomen: Attestation: I have reviewed the pertinent imaging results. Radiologist's impression: Left lower quadrant pain, rectal bleeding. TECHNIQUE: CT abdomen and pelvis acquired with 44 cc Isovue 370 IV contrast. COMPARISON: CT abdomen and pelvis September 14. FINDINGS: Lower chest: Unremarkable. Liver: Normal in size and attenuation. No suspicious masses. Gallbladder and bile ducts: No stones or inflammation. No biliary dilatation. Pancreas: No mass or inflammation. Spleen: Normal in size. No masses. Adrenal glands: No suspicious mass. Kidneys: Bilateral kidneys are normal in size with symmetric enhancement. No nephrolithiasis or hydronephrosis. Focus of the lower small hypoattenuating pole of left kidney, too small to characterize. GI tract: There is mild wall thickening of the descending colon and minimal adjacent fat stranding. No evidence of bowel obstruction. No free intraperitoneal air. Vasculature: Abdominal aorta is normal in caliber. Lymph nodes: No lymphadenopathy. Peritoneum/Abdominal Wall: Minimal free fluid in the pelvis. No free intraperitoneal air. Pelvis: Uterus is normal in size and attenuation. Bones: Lumbar vertebral body height and alignment is maintained. No suspicious focal bony lesion. IMPRESSION: 1. Minimal wall thickening of the descending colon with adjacent mild fatty stranding, concerning for infectious /inflammatory colitis in the appropriate clinical settings. Minimal free fluid in the pelvis. No bowel obstruction. Discharge Plan Discharge Clinical Impression: Colitis Patient Disposition: Home, Self-Care Condition: Stable Additional Instructions: Abdominal CT scan shows colitis which is an inflammation of the colon. This can be caused by chronic conditions such as ulcerative colitis or Crohn's disease - which will require treatment, or can be caused by infection. At this time, you will be treated with an antibiotic. However, given your history this is likely caused by chronic inflammation. You will need to follow-up with your primary care provider to have a colonoscopy done, this is the only way to definitively diagnose what kind of colitis you have. Pain medications will also be provided to you to take as needed. Four tablets of [place] sent to [facility]. Prescriptions: New ciprofloxacin HCl [Cipro] 500 mg tablet 500 mg PO BID 10 Days Qty: 20 0RF metronidazole 500 mg tablet 500 mg PO TID 10 Days Qty: 30 0RF Follow Up/Referrals: Deandra Montaño MD [Primary Care Provider] - Stand Alone Forms: [employer] Info Instructions
[2024-10-13 15:46] LABS: Lactate* 0.6 mmol/L (0.5-1.9)
[2024-10-13] MEDS: 0.9 % SODIUM CHLORIDE 1000 ml 1,000 ML IV (15:46)
[2024-10-13 15:49] LABS: Basophils Percent Auto 0.5 % (0.0-3.0); Eosinophils Percent Auto 2.4 % (0.0-7.0); Hematocrit 41.1 % (33.0-51.0); Hemoglobin* 13.5 gm/dL (12.0-16.0); Lymphocytes Percent Auto 23.7 % (20-44); Mean Corpuscular HGB Conc 33 gm/dL (32-36); Mean Corpuscular Hemoglobin 29 pg (26-34); Mean Corpuscular Volume 89 fL (80-100); Monocytes Percent Auto 11.7 % (0.0-11.0); Neutrophils Percent Auto 61.7 % (42.0-72.0); Platelet Count* 173 K/uL (140-440); RDW Coefficient of Variation % 12.9 % (11.5-15.5); Red Blood Count 4.63 m/uL (4.00-5.20); White Blood Count* 4.09 K/uL (4.50-11.00)
[2024-10-13 15:53] LABS: Slide Review Reflex No
[2024-10-13 16:00] LABS: Appearance Urine Clear (Clear); Bilirubin Urine Negative (Negative); Blood Urine Negative (Negative); Color Urine Yellow (Yellow); Glucose Urine Negative (Negative); Ketones Urine Negative (Negative); Leukocyte Esterase Urine Negative (Negative); Nitrite Urine Negative (Negative); Protein Urine Negative (Negative); Urobilinogen Urine 0.2 (0.2-1.0)
[2024-10-13 16:01] LABS: Ur HCG Qualitative* Negative (Negative)
[2024-10-13 16:05] LABS: Albumin* 4.5 g/dL (3.3-5.0); Chloride* 106 mmol/L (96-114)
[2024-10-13 16:06] LABS: Potassium* 3.5 mmol/L (3.6-5.1); Sodium* 138 mmol/L (135-149)
[2024-10-13 16:07] LABS: Bacteria Urine Few; Mucus Urine Moderate; RBC Urine 0-2 (0-2); Squamous Epithelial Cell Urine Few (None-Few); WBC Urine 0-2 (0-5)
[2024-10-13 16:08] LABS: Creatinine* 0.7 mg/dL (0.5-1.5); Estimated Glomerular Filt Rate 115 ml/min
[2024-10-13 16:09] LABS: Alanine Aminotransferase* 10 U/L (4-35); Alkaline Phosphatase* 43 U/L (40-150); Anion Gap 8 mEq/L (7-15); Aspartate Amino Transferase* 17 U/L (12-35); Bilirubin Direct* 0.1 mg/dL (0.0-0.5); Bilirubin Total* 0.2 mg/dL (0.1-1.5); Blood Urea Nitrogen* 11 mg/dL (5-24); Calcium* 8.7 mg/dL (8.4-10.6); Carbon Dioxide* 24 mmol/L (20-32); Glucose* 78 mg/dL (60-115); Lipase* 65 U/L (23-300); Total Protein* 7.3 g/dL (6.0-8.3)
[2024-10-13 16:11] LABS: C Reactive Protein* 0.9 mg/dL (0.5-1.0)
--- OUTSIDE RECORDS SUMMARY | 2024-10-13 16:35 | XMS_ITS | Clinical Summary ---
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 Gender Identity Not on file Sexual Orientation [...] Procedure Name Priority Date/Time Associated Diagnosis Comments ROLLER THIN PREP PAP SCREEN IMAGED Routine 07/02/2019 2:10 PM CDT from Last 3 Months or Most Recently Relevant to Health Maintenance Results * ROLLER THIN PREP PAP SCREEN IMAGED (07/02/2019 2:10 PM CDT) Case Report Gynecologic Cytology Report Case: [id number] Authorizing Provider: Alysia Jennings MD Collected: 07/02/2019 1410 Ordering Location: [facility] Received: 07/03/2019 7863 First Screen: Alfaro Juju Specimen: ROLLER ThinPrep Vial Screening, Cervical/Vaginal 07/12/2019 2:54 PM CDT [facility] INTERPRETATION/ RESULT NEGATIVE FOR INTRAEPITHELIAL LESION OR MALIGNANCY (NIL) (none) 07/12/2019 2:54 PM CDT [facility] IMEN ADEQUACY Satisfactory for evaluation No endocervical component seen in a patient 07/12/2019 2:54 PM CDT [facility] HPV REQUEST HPV and PAP 07/12/2019 2:54 PM CDT [facility] Date of LMP 05/06/2019 07/12/2019 2:54 PM CDT [facility] Last Pap Date 05/01/2018 07/12/2019 2:54 PM CDT [facility] Last Pap Result NIL 9 2:54 PM CDT [facility] Comment:-HPV Menstrual Status 07/12/2019 2:54 PM CDT [facility] Automated Review Successful 07/12/2019 2:54 PM CDT [facility] Comment:Specimen processed s uccessfully by automated composition instructor device, StentysPrep Imaging System, [employer] ANCILLARY TESTING ROLLER HPV Ordered, Please see separate report 07/12/2019 2:54 PM CDT [facility] Note The pap test is [...] lesions. Cytology is screened and interpreted at [facility] - [address], [place] [address] [facility] - [address] [place] [address]; [place] [address] and [facility] - [address]; [place] [address] and [facility] [address]; [place] [address] 07/12/2019 2:54 PM CDT [facility] Other (Cervical/Vagina l) 07/02/2019 2:10 PM CDT 07/03/2019 6:45 PM CDT Alysia Jennings MD PATHOLOGY/CYTOLOGY Final Result [facility] [address] [place] [address], from Last 3 Months or Most Recently Relevant to Health Maintenance Insurance [facility] Care Teams Passenger Vessel Chef Relationship Specialty Start Date End Date Pcp, No . PCP - General 04/08/22
== END 2024-10-13 17:44 | disposition home or self-care (01) ==
PROVIDERS: Emergency Provider Family Medicine; PCP Family Medicine
DX: K52.9 Noninfective gastroenteritis and colitis, unspecified (principal)
CPT/HCPCS: 36415; 74177; 80048; 80076; 81001; 81025; 83605; 83690; 85025; 86140; 87086; 96360; 99284; 99285; J7030; Q9967

== ENCOUNTER 2024-10-28 07:59 | Outpatient (CLI) | payer BC, SELFPAY ==
--- NOTE | 2024-10-28 09:22 | P.ANES_ITS ---
Anesthesia Charges Start Date/Time Anesthesia Start Date: 10/28/24 Anesthesia Start Time: 08:43 Stop Date/Time Anesthesia Stop Date: 10/28/24 Anesthesia Stop Time: 09:19 Coding CPT Codes CPT Codes: MANJIT LWR INTST NDDC NOS - 07667 ([id number]) P1 - NORMAL HEALTHY PATIENT, QK - RHEUMATOLOGY SPECIALIST 2-4 CNCRNT ANES PROC, QX - TRANSPORT AIDE SVC W/ MED DIRECTION
--- NOTE | 2024-10-28 09:22 | W.ANESCHARGE ---
Anesthesia Charges Start Date/Time Anesthesia Start Date: 10/28/24 Anesthesia Start Time: 08:43 Stop Date/Time Anesthesia Stop Date: 10/28/24 Anesthesia Stop Time: 09:19 Coding CPT Codes CPT Codes: MANJIT LWR INTST NDPR NOS - 63930 ([id number]) P1 - NORMAL HEALTHY PATIENT, QK - POLICY WRITER 2-4 CNCRNT ANES PROC, QX - MANAGER PRIMARY SVC W/ MED DIRECTION
--- NOTE | 2024-10-28 09:28 | P.ANES_ITS ---
Anesthesia Charges Start Date/Time Anesthesia Start Date: 10/28/24 Anesthesia Start Time: 08:43 Stop Date/Time Anesthesia Stop Date: 10/28/24 Anesthesia Stop Time: 09:19 Coding CPT Codes CPT Codes: MANJIT LWR INTST NDOK NOS - 96019 ([id number]) P1 - NORMAL HEALTHY PATIENT, QK - AIR AND HYDRONIC BALANCING TECHNICIAN 2-4 CNCRNT ANES PROC, QX - COAL PICKER SVC W/ MED DIRECTION
--- NOTE | 2024-10-28 09:28 | W.ANESCHARGE ---
Anesthesia Charges Start Date/Time Anesthesia Start Date: 10/28/24 Anesthesia Start Time: 08:43 Stop Date/Time Anesthesia Stop Date: 10/28/24 Anesthesia Stop Time: 09:19 Coding CPT Codes CPT Codes: MANJIT LWR INTST NDMO NOS - 58286 ([id number]) P1 - NORMAL HEALTHY PATIENT, QK - WARDROBE MANAGER 2-4 CNCRNT ANES PROC, QX - DEPUTY CORONER INVESTIGATOR SVC W/ MED DIRECTION
== END 2024-10-28 08:00 | disposition home or self-care (01) ==
LOC: OP CLINIC 07:59
PROVIDERS: PCP Family Medicine; Visit Provider Surgery
DX: K92.1 Melena (principal)
CPT/HCPCS: 00811; 45380; 88305; J2704

== ENCOUNTER 2025-02-14 12:56 | Outpatient (CLI) | payer BC, SELFPAY | END 2025-02-14 12:57 | disposition home or self-care (01) | LOC: NFLDREF 02-19 00:29 | PROVIDERS: PCP Family Medicine; Referring Provider Family Medicine; Visit Provider Nurse Practitioner Family | DX: N30.90 Cystitis, unspecified without hematuria (principal); B96.20 Unspecified Escherichia coli [E. coli] as the cause of diseases classified elsewhere | CPT/HCPCS: 87086 ==

== ENCOUNTER 2025-03-23 14:22 | Outpatient (CLI) | payer BC, SELFPAY | END 2025-03-23 14:23 | disposition home or self-care (01) | LOC: NFLDREF 03-25 03:57 | PROVIDERS: PCP Family Medicine; Referring Provider Family Medicine; Visit Provider Physician Assistant Surgical | DX: R30.0 Dysuria (principal); R35.0 Frequency of micturition | CPT/HCPCS: 87086 ==

== ENCOUNTER 2025-04-17 13:43 | Outpatient (CLI) | payer BC, SELFPAY | END 2025-04-17 13:44 | disposition home or self-care (01) | PROVIDERS: PCP Family Medicine; Visit Provider Family Medicine | DX: M54.89 Other dorsalgia (principal); Q63.9 Congenital malformation of kidney, unspecified; R82.90 Unspecified abnormal findings in urine | CPT/HCPCS: 80053; 87086 ==

== ENCOUNTER 2025-04-21 15:05 | Emergency (ER) | payer BC, SELFPAY ==
--- OUTSIDE RECORDS SUMMARY | 2025-04-21 15:07 | XMS_ITS | Clinical Summary ---
Author Organization [employer] [facility] Address [address] [place] [id number] Care Team Providers Care Scrap Dealer Name Role Phone Pcp, No Primary Care Provider Unavailabl e Allergies Active Allergy Reactions Criticality Noted Date Comments Amoxicillin Hives 01/04/2010 Azithromycin Hives 01/04/2010 Ciprofloxacin Hives 01/04/2010 Sulfa (Sulfonamide Antibiotics) Hives 03/19 Medications No known medications Active Problems Problem Noted Date Diagnosed Date Luisa (monopolar) single episode or unspecified Immunizations Immunization Administration Dates Next Due Influenza, IIV3 (Age [...] on file Legal Sex Female 7:51 AM TEST PULLER Gender Identity Not on file Sexual Orientation [...] Health Maintenance Due Date Last Done Comments Tetanus booster 1999 Depression screening for age 12+ 2000 HIV for age 15-65 2003 Hepatitis C screening for age 18-79 2006 Hepatitis B series for 19+ (1 of 3 - 19+ 3-dose series) 2007 Pap test for age 21-65 07/02/2022 9, 07/02/2019, 05/01/2018, Additional history exists BMI (ht and wt on same day) for age 18+ 04/08/2023 04/08/2022 COVID-19 vaccine series ( season) 2024 Influenza Vaccine (#1) 2025 10/09/2008 Pneumococcal series for age 6-49 Aged Out No longer eligible based on patient's age to complete this topic Procedures Procedure Name Priority Date/Time Associated Diagnosis Comments TANKROOM WORKER THIN PREP PAP SCREEN IMAGED Routine 07/02/2019 2:10 PM CDT from Last 3 Months or Most Recently Relevant to Health Maintenance Results * TANKROOM WORKER THIN PREP PAP SCREEN IMAGED (07/02/2019 2:10 PM CDT) Case Report Gynecologic Cytology Report Case: [id number] Authorizing Provider: Alysia Jennings MD Collected: 07/02/2019 1410 Ordering Location: [facility] Received: 07/03/2019 1845 First Screen: Juju Alfaro Specimen: TANKROOM WORKER ThinPrep Vial Screening, Cervical/Vaginal 07/12/2019 2:54 PM CDT [facility] ENTRAL LABORATORY INTERPRETATION/ RESULT NEGATIVE FOR INTRAEPITHELIAL LESION OR MALIGNANCY (NIL) (none) 07/12/2019 2:54 PM CDT [facility] ENTRAL LABORATORY at 1454 CDT SPECIMEN ADEQUACY Satisfactory for evaluation No endocervical component seen in a patient 07/12/2019 2:54 PM CDT [facility] HPV REQUEST HPV and PAP 07/12/2019 2:54 PM CDT [facility] Date of LMP 05/06/2019 07/12/2019 2:54 PM CDT [facility] Last Pap Date 05/01/2018 07/12/2019 2:54 PM CDT [facility] Last Pap Result NIL 9 2:54 PM CDT [facility] Comment:-HPV Menstrual Status 07/12/2019 2:54 PM CDT [facility] Automated Review Successful 07/12/2019 2:54 PM CDT [facility] Comment:Specimen processed s uccessfully by automated party plan sales agent device, ThinPrep Imaging System, [employer] ANCILLARY TESTING TANKROOM WORKER HPV Ordered, Please see separate report 07/12/2019 2:54 PM CDT [facility] Note The pap test is [...] - [address], [place] [address] and [facility] - [address]; [place] [address] and - [address]; [place] [address] and [facility] [address]; [place] [address] 07/12/2019 2:54 PM CDT [facility] Other (Cervical/Vagina l) 07/02/2019 2:10 PM CDT 07/03/2019 6:45 PM CDT us Alysia Jennings MD PATHOLOGY/CYTOLOGY Final Res [facility]AL [facility]ORY [address] [place] [address], [place] from Last 3 Months or Most Recently Relevant to Health Maintenance Insurance Care Teams Scrap Dealer Relationship Specialty Start Date End Date Pcp, Karuna Paniagua PCP - General 04/08/22
[2025-04-21 15:17] VITALS: BP 120/79; PULSE 108; RESP 18; TEMP 36.1; O2SAT 98; BMI 17.0
--- NOTE | 2025-04-21 15:31 | CRLHL7_ITS ---
For Patients: As a result of the Century Cures Act, medical imaging exams and procedure reports are released immediately into your electronic medical record. You may view this report before your referring provider. If you have questions, please contact your health care provider. INDICATION: left flank pain wrapping into lower abdomen TECHNIQUE: CT abdomen and pelvis acquired with 44 cc Isovue 370 IV contrast. COMPARISON: September 2024 and 2017. FINDINGS: Lower chest: The visualized lower lungs are aerated. No pleural or pericardial effusion. ABDOMEN: Liver: Normal enhancement. No focal suspicious hepatic lesions. Gallbladder and biliary: Normal gallbladder without radiopaque stone. Normal caliber bile ducts. Spleen: Normal size and enhancement. Pancreas: Normal enhancement without peripancreatic inflammatory changes or ductal dilatation. Adrenal glands: Normal adrenal glands. Kidneys and ureters: Normal enhancement. No radio-opaque calculi. No hydroureteronephrosis. Partially duplicated left renal collecting system. GI tract: The stomach is relatively decompressed. Normal caliber small and large bowel loops. Appendix is not definitively visualized however likely resides in the right lower quadrant best appreciated on coronal images 25 through 40. Vascular structures: Normal caliber abdominal aorta. Thickening and non-opacification of the left ovarian vein with mild adjacent stranding. Right ovarian vein is patent. Lymph nodes: No lymphadenopathy in the abdomen or pelvis by size criteria. Peritoneum: Trace free fluid in the pelvis. No free air or focal drainable collection. PELVIS: Genitourinary system: Urinary bladder is relatively decompressed. Age-appropriate uterus. Dominant left ovarian cyst. SKELETAL STRUCTURES AND SOFT TISSUES: No suspicious lytic or blastic lesions. IMPRESSION: Left ovarian vein thrombophlebitis. Please note that all CT scans at this facility use dose modulation, iterative reconstruction, and/or weight-based dosing when appropriate to reduce radiation dose to as low as reasonably achievable. Dictated by Rafa Clement MD @ 04/21/2025 6:31:15 PM (Electronically Signed)
--- NOTE | 2025-04-21 15:42 | ED_ITS ---
HPI - General Adult General Date Seen: 04/21/25 <Jose Carlos Michelle Terrance DO - Last Filed: 04/21/25 15:52> Chief complaint: Flank Pain <Jose Carlos P Terrance DO - Last Filed: 04/21/25 15:52> Stated complaint: Kidney Stone <Jose Carlos Carlos DO - Last Filed: 04/21/25 15:52> Time Seen by Provider: 04/21/25 15:23 <Jose Carlos Carlos DO - Last Filed: 04/21/25 15:52> Source: patient <Jose Carlos Carlos DO - Last Filed: 04/21/25 15:52> Mode of arrival: ambulatory <Jose Carlos Miguel Angel Terrance - Last Filed: 04/21/25 15:52> Limitations: no limitations <Jose Carlos Carlos DO - Last Filed: 04/21/25 15:52> History of Present Illness HPI narrative: Patient is a 35-year-old female presenting to the emergency department for left-sided back pain. She states pain feels like it is in her left flank and radiates down into her abdomen. Symptoms have been going on for the past week and have been gradually getting worse. She saw her primary care provider last week and lab work and other testing were all normal she was. It was believed to be related to a muscle strain. Patient states the pain is a cramping dull ache in her back and a stabbing sensation in her lower abdomen. Has been having nausea also. Is currently nauseated. Has not had any fevers or chills but did feel warm this morning. Does have a history of multiple UTIs and pyelonephritis is. Denies any dysuria but does states she is having some polyuria. Pain is currently a 7/10. Denies chest pain, shortness of breath, diarrhea, constipation, headache, vision changes, weakness, numbness. No other concerns noted at this time. <Jose Carlos Carlos - Last Filed: 04/21/25 15:52> Related Data Home medications: Home Medications ?Medication ?Instructions ?Recorded ?Confirmed No Known Home Medications 04/17/25 07/10/12 <Jose Carlos Carlos DO - Last Filed: 04/21/25 15:52> Allergies/adverse reactions: Allergies Allergy/AdvReac Type Severity Reaction Status Date / Time clavulanic acid Allergy Mild Hives Verified 04/17/25 13:31 erythromycin base Allergy Mild Rash Verified 04/17/25 13:31 penicillin V Allergy Mild Hives Verified 04/17/25 13:31 Sulfa (Sulfonamide Allergy Mild Hives Verified 04/17/25 13:31 Antibiotics) <Jose Carlos Carlos DO - Last Filed: 04/21/25 15:52> Review of Systems Status of ROS: Reports: 10 or more systems reviewed and unremarkable except as noted in History and below <Jose Carlos Carlos DO - Last Filed: 04/21/25 15:52> [facility] Medical History: Medical History History of pyelonephritis ?Z87.448 - Personal history of other diseases of urinary system (ICD-10) Kidney anomaly, congenital ?Q63.9 - Congenital malformation of kidney, unspecified (ICD-10) Otitis media ?H66.90 - Otitis media, unspecified, unspecified ear (ICD-10) Viral upper respiratory infection ?J06.9 - Acute upper respiratory infection, unspecified (ICD-10) Strep pharyngitis ?J02.0 - Streptococcal pharyngitis (ICD-10) Cervical intraepithelial neoplasia grade 2 ?N87.1 - Moderate cervical dysplasia (ICD-10) 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 (ICD-10) History of anemia ?Z86.2 - Personal history of diseases of the blood and blood-forming organs and certain disorders involving the immune mechanism (ICD-10) Endometriosis determined by laparoscopy (11/2018) ?N80.9 - Endometriosis, unspecified (ICD-10) Depression ?F32.A - Depression, unspecified (ICD-10) Constipation ?K59.00 - Constipation, unspecified (ICD-10) <Jose Carlos Carlos DO - Last Filed: 04/21/25 15:52> Surgical History: Surgical History History of laparoscopy (11/13/18) ?Z98.890 - Other specified postprocedural states (ICD-10) History of bilateral salpingectomy (06/15/21) ?Z90.79 - Acquired absence of other genital organ(s) (ICD-10) Status post emergency section (03/17/21) ?Z98.891 - History of uterine scar from previous surgery (ICD-10) History of tooth extraction (2016) ?K08.409 - Partial loss of teeth, unspecified cause, unspecified class (ICD- 10) History of loop electrosurgical excision procedure (LEEP) of cervix (06/01/17) ?Z98.890 - Other specified postprocedural states (ICD-10) History of dilation and curettage (07/22/19) ?Z98.890 - Other specified postprocedural states (ICD-10) History of breast biopsy (11/02/17) ?Z98.890 - Other specified postprocedural states (ICD-10) <Jose Carlos Carlos DO - Last Filed: 04/21/25 15:52> Family History: Family History Paternal Grandmother Breast cancer, Onset Age: 40 Uncle Diabetes Other Prostate cancer <Jose Carlos Carlos DO - Last Filed: 04/21/25 15:52> Social History: Social History Narrative: [id number]-[id number] mom. . tobacco use 8-9/ day x 14 years. No alcohol use. Smoking Status: Current every day smoker What tobacco products do you use: cigarettes Do you use any of these nicotine containing products: None Second hand tobacco smoke exposure: No How often do you have a drink containing alcohol: never AUDIT-C Alcohol total score: 0 Non-prescribed substance use: denies use service: No <Jose Carlos Carlos DO - Last Filed: 04/21/25 15:52> Exam Narrative: Exam Narrative: Const: Well-nourished, Well-developed, in mild distress Eyes: PERRL, no conjunctival injection, and symmetrical lids HENT: Atraumatic external nose and ears. Moist mucous membranes. Neck: Symmetric, trachea midline, No thyromegaly. CVS: RRR, No murmurs or gallops. Peripheral pulses 2+ and equal in all extremities RESP: Unlabored respiratory effort. Clear to auscultation bilaterally. GI: Mild lower abdominal tenderness, Nondistended, No rebound or guarding. Left CVA tenderness MSK:Extremities w/o deformity, Normal Active ROM Skin: Warm, Dry. No rashes or lesions. Neuro: Normal Muscle tone, No focal neurological deficits. Psych: Awake, Alert, & Oriented x3. Appropriate mood and affect. <Jose Carlos Carlos, DO - Last Filed: 04/21/25 15:52> Const: Vital Signs, click to edit/add: Vital Signs - 24 hr 04/21/25 15:17 04/21/25 20:35 Temperature 97.0 F L Pulse Rate [Pulse Oximeter] 108 H 73 Respiratory Rate 18 18 Blood Pressure [Ri ght Upper Arm] 120/79 110/87 Pulse Oximetry 98 100 Oxygen Delivery Me thod Room Air Room Air <Jose Carlos Carlos, DO - Last Filed: 04/21/25 15:52> Vital Signs, click to edit/add: Vital Signs - 24 hr 04/21/25 15:17 04/21/25 20:35 Temperature 97.0 F L Pulse Rate [Pulse Oximeter] 108 H 73 Respiratory Rate 18 18 Blood Pressure [Ri ght Upper Arm] 120/79 110/87 Pulse Oximetry 98 100 Oxygen Delivery Me thod Room Air Room Air <Isi Nieto MD - Last Filed: 04/21/25 23:19> Course Course ED Course: I was asked to follow-up on the imaging of this patient. The CT scans shows a left-sided ovarian vein thrombophlebitis. Because of this we did go ahead and proceed with a Pelvic ultrasound. Ultrasound was unremarkable. I spoke to Dr. Redd, who read the ultrasound he stated that the left ovarian cyst that was mention on the CT scan is a follicle that is normal and less than 2.5 cm. And what was seen on the CT scan regarding the thrombophlebitis was not reflected in the ultrasound. Per Dr. Duff an ovarian vein thrombophlebitis would be extremely rare without recent abdominal surgery and these generally present as septic thrombophlebitis, which the patient has no evidence of infection. Did consult with Dr. Duff and together we decided to add a CRP and a D-dimer to the patient's lab work. These were both within normal limits. This makes it less likely that there is a thrombus in the left ovarian vein. Although, still not impossible. We decided at this time because of that normal blood work and normal ultrasound to have the patient follow-up in 24 hours to re-evaluate her pain, but hold off on any anticoagulation given the uncertainty of the diagnosis. All of this was discussed in detail with the patient, all of her questions were answered and together we came up with a follow-up plan in which she will be seen 24 hours. <Isi Nieto MD - Last Filed: 04/21/25 23:19> Vital Signs Vital signs: Initial Vital Signs Temperature 97.0 F L 04/21/25 15:17 Temperature Source Temporal Artery Scan 04/21/25 15:17 Pulse Rate 108 H 04/21/25 15:17 Respiratory Rate 18 04/21/25 15:17 Blood Pressure 120/79 04/21/25 15:17 Blood Pressure Mean 92 04/21/25 15:17 Blood Pressure Position Sitting 04/21/25 15:17 Pulse Oximetry 98 04/21/25 15:17 Oxygen Delivery Method Room Air 04/21/25 15:17 Vital Signs Temperature 97.0 F L 04/21/25 15:17 Pulse Rate 108 H 04/21/25 15:17 Respiratory Rate 18 04/21/25 15:17 Blood Pressure 120/79 04/21/25 15:17 Pulse Oximetry 98 04/21/25 15:17 Oxygen Delivery Method Room Air 04/21/25 15:17 Temperature 97.0 F L 04/21/25 15:17 Pulse Rate 73 04/21/25 20:35 Respiratory Rate 18 04/21/25 20:35 Blood Pressure 110/87 04/21/25 20:35 Pulse Oximetry 100 04/21/25 20:35 Oxygen Delivery Method Room Air 04/21/25 20:35 <Jose Carlos Carlos DO - Last Filed: 04/21/25 15:52> Initial Vital Signs Temperature 97.0 F L 04/21/25 15:17 Temperature Source Temporal Artery Scan 04/21/25 15:17 Pulse Rate 108 H 04/21/25 15:17 Respiratory Rate 18 04/21/25 15:17 Blood Pressure 120/79 04/21/25 15:17 Blood Pressure Mean 92 04/21/25 15:17 Blood Pressure Position Sitting 04/21/25 15:17 Pulse Oximetry 98 04/21/25 15:17 Oxygen Delivery Method Room Air 04/21/25 15:17 Vital Signs Temperature 97.0 F L 04/21/25 15:17 Pulse Rate 108 H 04/21/25 15:17 Respiratory Rate 18 04/21/25 15:17 Blood Pressure 120/79 04/21/25 15:17 Pulse Oximetry 98 04/21/25 15:17 Oxygen Delivery Method Room Air 04/21/25 15:17 Temperature 97.0 F L 04/21/25 15:17 Pulse Rate 73 04/21/25 20:35 Respiratory Rate 18 04/21/25 20:35 Blood Pressure 110/87 04/21/25 20:35 Pulse Oximetry 100 04/21/25 20:35 Oxygen Delivery Method Room Air 04/21/25 20:35 <Isi Nieto MD - Last Filed: 04/21/25 23:19> Medications Administered Medications: Discontinued Medications Generic Name Dose Route Start Last Admin Trade Name Freq PRN Reason Stop Dose Admin Fentanyl 50 mcg 04/21/25 19:12 04/21/25 19:20 Fentanyl 100 Mcg/2 Ml Inj IVP 04/21/25 19:13 50 mcg ONCE ONE Administration Lactated Ringer's 1,000 mls @ 1,000 mls/hr 04/21/25 15:31 04/21/25 16:57 Lactated Ringers 1000 Ml IV 04/21/25 16:30 Infused .Q1H ONE Infusion Ketorolac Tromethamine 15 mg 04/21/25 15:31 04/21/25 16:04 Ketorolac 15 Mg/Ml Inj IVP 04/21/25 15:32 15 mg ONCE ONE Administration Ondansetron HCl 4 mg 04/21/25 15:31 04/21/25 16:04 Ondansetron 2 Mg/Ml Inj IVP 04/21/25 15:32 4 mg ONCE ONE Administration <Jose Carlos Carlos DO - Last Filed: 04/21/25 15:52> Discontinued Medications Generic Name Dose Route Start Last Admin Trade Name Freq PRN Reason Stop Dose Admin Fentanyl 50 mcg 04/21/25 19:12 04/21/25 19:20 Fentanyl 100 Mcg/2 Ml Inj IVP 04/21/25 19:13 50 mcg ONCE ONE Administration Lactated Ringer's 1,000 mls @ 1,000 mls/hr 04/21/25 15:31 04/21/25 16:57 Lactated Ringers 1000 Ml IV 04/21/25 16:30 Infused .Q1H ONE Infusion Ketorolac Tromethamine 15 mg 04/21/25 15:31 04/21/25 16:04 Ketorolac 15 Mg/Ml Inj IVP 04/21/25 15:32 15 mg ONCE ONE Administration Ondansetron HCl 4 mg 04/21/25 15:31 04/21/25 16:04 Ondansetron 2 Mg/Ml Inj IVP 04/21/25 15:32 4 mg ONCE ONE Administration <Isi Nieto MD - Last Filed: 04/21/25 23:19> Medical Decision Making MDM Narrative Medical decision making narrative: Patient is a 35-year-old female presenting to the emergency department for left-sided flank pain. The differential diagnosis of flank pain including va scular causes such as aortic aneurysm, renal vascular issues, aortic dissection, mesenteric ischemia, nephrolithiasis, ureter stricture, pyelonephritis, along with several other GI and gynecological/ causes. Since pain does radiate into her abdomen will do a CT scan with IV contrast to look for diverticulitis, pyelonephritis, nephrolithiasis. Seems unlikely that this is a AAA rupture. 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 Will give her Toradol for pain and Zofran for nausea. Fluids given so that she can provide a urine sample. Will also order lipase, CBC, CMP. <Jose Carlos Carlos DO - Last Filed: 04/21/25 15:52> Lab Data Lab results reviewed: Yes I reviewed the patient's lab results <Isi Nieto MD - Last Filed: 04/21/25 23:19> Labs: Lab Results 04/21/25 04/21/25 04/21/25 Range/Units 15:58 16:55 22:10 WBC 6.23 (4.50-11.00) K/uL RBC 4.59 (4.00-5.20) m/uL Hgb 13.3 (12.0-16.0) gm/dL Hct 41.0 (33.0-51.0) % MCV 89 (80-100) fL MCH 29 (26-34) pg MCHC 32 (32-36) gm/dL RDW Coeff of Bryce 13.4 (11.5-15.5) % Plt Count 231 (140-440) K/uL Neut % (Auto) 67.1 (42.0-72.0) % Lymph % (Auto) 24.9 (20-44) % [place] % (Auto) 5.6 (0.0-11.0) % Eos % (Auto) 1.4 (0.0-7.0) % Baso % (Auto) 0.8 (0.0-3.0) % Neut # (Auto) 4.18 (1.7-7.0) K/uL Lymph # (Auto) 1.55 (0.90-2.90) K/uL [place] # (Auto) 0.30 (0.00-0.90) K/UL Eos # (Auto) 0.09 (0.00-0.50) K/uL Baso # (Auto) 0.05 (0.00-0.30) K/uL Abs Immat Gran (auto) 0.01 (0.00-0.30) K/uL Imm/Tot Granulo (auto) 0.2 % D-Dimer Quant (PE/DVT) 0.17 (0.00-0.50) ug/ml Sodium 138 (135-149) mmol/L Potassium 3.8 (3.6-5.1) mmol/L Chloride 107 (96-114) mmol/L Carbon Dioxide 24 (20-32) mmol/L Anion Gap 7 (7-15) mEq/L BUN 16 (5-24) mg/dL Creatinine 0.9 (0.5-1.5) mg/dL Estimated Creat Clear 55.16 Estimated GFR 84 ml/min Glucose 88 (60-115) mg/dL Calcium 9.5 (8.4-10.6) mg/dL Total Bilirubin 0.5 (0.1-1.5) mg/dL AST 20 (12-35) U/L ALT 10 (4-35) U/L Alkaline Phosphatase 45 (40-150) U/L C-Reactive Protein < 0.5 L (0.5-1.0) mg/dL Total Protein 7.8 (6.0-8.3) g/dL Albumin 4.8 (3.3-5.0) g/dL Lipase 83 (23-300) U/L HCG, Qual Cancelled Urine Color Yellow (Yellow) Urine Appearance Clear (Clear) Urine pH 5.5 (5.0-8.5) Ur Specific [place] 1.010 (1.000-1.030) Urine Protein Negative (Negative) Urine Glucose (UA) Negative (Negative) Urine Ketones Negative (Negative) Urine Blood Trace-intact A (Negative) Urine Nitrite Negative (Negative) Urine Bilirubin Negative (Negative) Urine Urobilinogen 0.2 (0.2-1.0) Ur Leukocyte Esterase Negative (Negative) Urine RBC 0-2 (0-2) Urine WBC 0-2 (0-5) Ur Squamous Epith Cells None (None-Few) Urine Bacteria None (None) Urine HCG, Qual Negative (Negative) Lab Acknowledgement Test Added 04/21/25 Range/Units 22:32 WBC (4.50-11.00) K/uL RBC (4.00-5.20) m/uL Hgb (12.0-16.0) gm/dL Hct (33.0-51.0) % MCV (80-100) fL MCH (26-34) pg MCHC (32-36) gm/dL RDW Coeff of Bryce (11.5-15.5) % Plt Count (140-440) K/uL Neut % (Auto) (42.0-72.0) % Lymph % (Auto) (20-44) % [place] % (Auto) (0.0-11.0) % Eos % (Auto) (0.0-7.0) % Baso % (Auto) (0.0-3.0) % Neut # (Auto) (1.7-7.0) K/uL Lymph # (Auto) (0.90-2.90) K/uL [place] # (Auto) (0.00-0.90) K/UL Eos # (Auto) (0.00-0.50) K/uL Baso # (Auto) (0.00-0.30) K/uL Abs Immat Gran (auto) (0.00-0.30) K/uL Imm/Tot Granulo (auto) % D-Dimer Quant (PE/DVT) (0.00-0.50) ug/ml Sodium (135-149) mmol/L Potassium (3.6-5.1) mmol/L Chloride (96-114) mmol/L Carbon Dioxide (20-32) mmol/L Anion Gap (7-15) mEq/L BUN (5-24) mg/dL Creatinine (0.5-1.5) mg/dL Estimated Creat Clear Estimated GFR ml/min Glucose (60-115) mg/dL Calcium (8.4-10.6) mg/dL Total Bilirubin (0.1-1.5) mg/dL AST (12-35) U/L ALT (4-35) U/L Alkaline Phosphatase (40-150) U/L C-Reactive Protein (0.5-1.0) mg/dL Total Protein (6.0-8.3) g/dL Albumin (3.3-5.0) g/dL Lipase (23-300) U/L HCG, Qual Urine Color (Yellow) Urine Appearance (Clear) Urine pH (5.0-8.5) Ur Specific [place] (1.000-1.030) Urine Protein (Negative) Urine Glucose (UA) (Negative) Urine Ketones (Negative) Urine Blood (Negative) Urine Nitrite (Negative) Urine Bilirubin (Negative) Urine Urobilinogen (0.2-1.0) Ur Leukocyte Esterase (Negative) Urine RBC (0-2) Urine WBC (0-5) Ur Squamous Epith Cells (None-Few) Urine Bacteria (None) Urine HCG, Qual (Negative) Lab Acknowledgement Test Added <Jose Carlos Carlos, DO - Last Filed: 04/21/25 15:52> Lab Results 04/21/25 04/21/25 04/21/25 Range/Units 15:58 16:55 22:10 WBC 6.23 (4.50-11.00) K/uL RBC 4.59 (4.00-5.20) m/uL Hgb 13.3 (12.0-16.0) gm/dL Hct 41.0 (33.0-51.0) % MCV 89 (80-100) fL MCH 29 (26-34) pg MCHC 32 (32-36) gm/dL RDW Coeff of Bryce 13.4 (11.5-15.5) % Plt Count 231 (140-440) K/uL Neut % (Auto) 67.1 (42.0-72.0) % Lymph % (Auto) 24.9 (20-44) % [place] % (Auto) 5.6 (0.0-11.0) % Eos % (Auto) 1.4 (0.0-7.0) % Baso % (Auto) 0.8 (0.0-3.0) % Neut # (Auto) 4.18 (1.7-7.0) K/uL Lymph # (Auto) 1.55 (0.90-2.90) K/uL [place] # (Auto) 0.30 (0.00-0.90) K/UL Eos # (Auto) 0.09 (0.00-0.50) K/uL Baso # (Auto) 0.05 (0.00-0.30) K/uL Abs Immat Gran (auto) 0.01 (0.00-0.30) K/uL Imm/Tot Granulo (auto) 0.2 % D-Dimer Quant (PE/DVT) 0.17 (0.00-0.50) ug/ml Sodium 138 (135-149) mmol/L Potassium 3.8 (3.6-5.1) mmol/L Chloride 107 (96-114) mmol/L Carbon Dioxide 24 (20-32) mmol/L Anion Gap 7 (7-15) mEq/L BUN 16 (5-24) mg/dL Creatinine 0.9 (0.5-1.5) mg/dL Estimated Creat Clear 55.16 Estimated GFR 84 ml/min Glucose 88 (60-115) mg/dL Calcium 9.5 (8.4-10.6) mg/dL Total Bilirubin 0.5 (0.1-1.5) mg/dL AST 20 (12-35) U/L ALT 10 (4-35) U/L Alkaline Phosphatase 45 (40-150) U/L C-Reactive Protein < 0.5 L (0.5-1.0) mg/dL Total Protein 7.8 (6.0-8.3) g/dL Albumin 4.8 (3.3-5.0) g/dL Lipase 83 (23-300) U/L HCG, Qual Cancelled Urine Color Yellow (Yellow) Urine Appearance Clear (Clear) Urine pH 5.5 (5.0-8.5) Ur Specific [place] 1.010 (1.000-1.030) Urine Protein Negative (Negative) Urine Glucose (UA) Negative (Negative) Urine Ketones Negative (Negative) Urine Blood Trace-intact A (Negative) Urine Nitrite Negative (Negative) Urine Bilirubin Negative (Negative) Urine Urobilinogen 0.2 (0.2-1.0) Ur Leukocyte Esterase Negative (Negative) Urine RBC 0-2 (0-2) Urine WBC 0-2 (0-5) Ur Squamous Epith Cells None (None-Few) Urine Bacteria None (None) Urine HCG, Qual Negative (Negative) Lab Acknowledgement Test Added 04/21/25 Range/Units 22:32 WBC (4.50-11.00) K/uL RBC (4.00-5.20) m/uL Hgb (12.0-16.0) gm/dL Hct (33.0-51.0) % MCV (80-100) fL MCH (26-34) pg MCHC (32-36) gm/dL RDW Coeff of [place]ce (11.5-15.5) % Plt Count (140-440) K/uL Neut % (Auto) (42.0-72.0) % Lymph % (Auto) (20-44) % [place] % (Auto) (0.0-11.0) % Eos % (Auto) (0.0-7.0) % Baso % (Auto) (0.0-3.0) % Neut # (Auto) (1.7-7.0) K/uL Lymph # (Auto) (0.90-2.90) K/uL [place] # (Auto) (0.00-0.90) K/UL Eos # (Auto) (0.00-0.50) K/uL Baso # (Auto) (0.00-0.30) K/uL Abs Immat Gran (auto) (0.00-0.30) K/uL Imm/Tot Granulo (auto) % D-Dimer Quant (PE/DVT) (0.00-0.50) ug/ml Sodium (135-149) mmol/L Potassium (3.6-5.1) mmol/L Chloride (96-114) mmol/L Carbon Dioxide (20-32) mmol/L Anion Gap (7-15) mEq/L BUN (5-24) mg/dL Creatinine (0.5-1.5) mg/dL Estimated Creat Clear Estimated GFR ml/min Glucose (60-115) mg/dL Calcium (8.4-10.6) mg/dL Total Bilirubin (0.1-1.5) mg/dL AST (12-35) U/L ALT (4-35) U/L Alkaline Phosphatase (40-150) U/L C-Reactive Protein (0.5-1.0) mg/dL Total Protein (6.0-8.3) g/dL Albumin (3.3-5.0) g/dL Lipase (23-300) U/L HCG, Qual Urine Color (Yellow) Urine Appearance (Clear) Urine pH (5.0-8.5) Ur Specific [place] (1.000-1.030) Urine Protein (Negative) Urine Glucose (UA) (Negative) Urine Ketones (Negative) Urine Blood (Negative) Urine Nitrite (Negative) Urine Bilirubin (Negative) Urine Urobilinogen (0.2-1.0) Ur Leukocyte Esterase (Negative) Urine RBC (0-2) Urine WBC (0-5) Ur Squamous Epith Cells (None-Few) Urine Bacteria (None) Urine HCG, Qual (Negative) Lab Acknowledgement Test Added <Isi Nieto MD - Last Filed: 04/21/25 23:19> Imaging Data CT scan - abdomen: Attestation: I have reviewed the pertinent imaging results. <Isi Nieto MD - Last Filed: 04/21/25 23:19> Radiologist's impression: TECHNIQUE: CT abdomen and pelvis acquired with 44 cc Isovue 370 IV contrast. COMPARISON: September 2024 and 2017. FINDINGS: Lower chest: The visualized lower lungs are aerated. No pleural or pericardial effusion. ABDOMEN: Liver: Normal enhancement. No focal suspicious hepatic lesions. Gallbladder and biliary: Normal gallbladder without radiopaque stone. Normal caliber bile ducts. Spleen: Normal size and enhancement. Pancreas: Normal enhancement without peripancreatic inflammatory changes or ductal dilatation. Adrenal glands: Normal adrenal glands. Kidneys and ureters: Normal enhancement. No radio-opaque calculi. No hydroureteronephrosis. Partially duplicated left renal collecting system. GI tract: The stomach is relatively decompressed. Normal caliber small and large bowel loops. Appendix is not definitively visualized however likely resides in the right lower quadrant best appreciated on coronal images 25 through 40. Vascular structures: Normal caliber abdominal aorta. Thickening and non-opacification of the left ovarian vein with mild adjacent stranding. Right ovarian vein is patent. Lymph nodes: No lymphadenopathy in the abdomen or pelvis by size criteria. Peritoneum: Trace free fluid in the pelvis. No free air or focal drainable collection. PELVIS: Genitourinary system: Urinary bladder is relatively decompressed. Age-appropriate uterus. Dominant left ovarian cyst. SKELETAL STRUCTURES AND SOFT TISSUES: No suspicious lytic or blastic lesions. IMPRESSION: Left ovarian vein thrombophlebitis. <Isi Nieto MD - Last Filed: 04/21/25 23:19> Discharge Plan Discharge Clinical Impression: Flank pain <Jose Carlos Carlos DO - Last Filed: 04/21/25 15:52> Patient Disposition: Home, Self-Care <Jose Carlos Carlos DO - Last Filed: 04/21/25 15:52> Condition: Stable <Jose Carlos Carlos DO - Last Filed: 04/21/25 15:52> Additional Instructions: You will be sent home today with a report of your CT scan and ultrasound, as well as all of her lab work. You need to follow-up with OBGYN or your primary care provider in 24 hours to re-evaluate your pain. If your pain becomes significantly worse or you develop shortness of breath or chest pain you should return to the emergency department. <Jose Carlos Carlos DO - Last Filed: 04/21/25 15:52> Prescriptions: No Action No Known Home Medications <Jose Carlos Carlos DO - Last Filed: 04/21/25 15:52> Follow Up/Referrals: Deandra Montaño MD [Primary Care Provider, [facility]] <Jose Carlos Carlos DO - Last Filed: 04/21/25 15:52> Stand Alone Forms: [email or web address] Info Instructions <Jose Carlos Carlos DO - Last Filed: 04/21/25 15:52>
[2025-04-21] MEDS: ONDANSETRON 2 MG/ML inj 4 MG IVP (16:04)
[2025-04-21] MEDS: LACTATED RINGERS 1000 ML 1,000 ML IV (16:04)
[2025-04-21 16:22] LABS: Hematocrit 41.0 % (33.0-51.0); Hemoglobin* 13.3 gm/dL (12.0-16.0); Immature Granulocytes Abs Auto 0.01 K/uL (0.00-0.30); Immature Granulocytes Pct Auto 0.2 %; Lymphocytes Absolute Auto 1.55 K/uL (0.90-2.90); Mean Corpuscular HGB Conc 32 gm/dL (32-36); Mean Corpuscular Hemoglobin 29 pg (26-34); Mean Corpuscular Volume 89 fL (80-100); RDW Coefficient of Variation % 13.4 % (11.5-15.5); Red Blood Count 4.59 m/uL (4.00-5.20); White Blood Count* 6.23 K/uL (4.50-11.00)
[2025-04-21 16:34] LABS: Albumin* 4.8 g/dL (3.3-5.0); Chloride* 107 mmol/L (96-114); Sodium* 138 mmol/L (135-149)
[2025-04-21 16:35] LABS: Potassium* 3.8 mmol/L (3.6-5.1)
[2025-04-21 16:37] LABS: Alanine Aminotransferase* 10 U/L (4-35); Alkaline Phosphatase* 45 U/L (40-150); Anion Gap 7 mEq/L (7-15); Aspartate Amino Transferase* 20 U/L (12-35); Bilirubin Total* 0.5 mg/dL (0.1-1.5); Blood Urea Nitrogen* 16 mg/dL (5-24); Calcium* 9.5 mg/dL (8.4-10.6); Carbon Dioxide* 24 mmol/L (20-32); Creatinine* 0.9 mg/dL (0.5-1.5); Est. Creatinine Clearance* 55.16; Estimated Glomerular Filt Rate 84 ml/min; Glucose* 88 mg/dL (60-115); Total Protein* 7.8 g/dL (6.0-8.3)
[2025-04-21 16:55] LABS: Slide Review Reflex No
[2025-04-21 17:07] LABS: Appearance Urine Clear (Clear)
[2025-04-21 17:14] LABS: Ur HCG Qualitative* Negative (Negative)
--- NOTE | 2025-04-21 18:51 | CRLHL7_ITS ---
For Patients: As a result of the Century Cures Act, medical imaging exams and procedure reports are released immediately into your electronic medical record. You may view this report before your referring provider. If you have questions, please contact your health care provider. INDICATION: Left-sided pelvic pain and flank pain. TECHNIQUE: Ultrasound pelvis transvaginal for better assessment or to better visualize the endometrium. Real-time sonographic images with spectral and color Doppler imaging of the ovaries were obtained. COMPARISON: CT abdomen and pelvis from the same day. FINDINGS: Uterus: 9.4 x 4.7 x 6.1 cm. Normal echotexture of the myometrium. No masses. Endometrium: Transvaginal imaging was performed to better evaluate the endometrium. Endometrial thickness measures 9 mm. No sign of endometrial mass or fluid. Right ovary measures 3.4 x 1.4 x 1.6 cm. Left ovary measures 3.4 x 1.4 x 2.7 cm. No ovarian or adnexal masses. Normal arterial and venous blood flow is demonstrated in both ovaries. Cul-de-sac: No significant free fluid. IMPRESSION: Unremarkable pelvic ultrasound. No acute findings or adnexal mass. Dictated by Yousuf Redd MD @ 04/21/2025 9:05:08 PM (Electronically Signed)
[2025-04-21 20:35] VITALS: BP 110/87; PULSE 73; RESP 18; O2SAT 100
[2025-04-21 22:59] LABS: D Dimer Quantitative* 0.17 ug/ml (0.00-0.50)
== END 2025-04-21 23:34 | disposition home or self-care (01) ==
PROVIDERS: Student in an Organized Health Care Education/Training Program; Emergency Provider Family Medicine; PCP Family Medicine
DX: R10.9 Unspecified abdominal pain (principal); R11.0 Nausea; R35.89 Other polyuria
CPT/HCPCS: 36415; 74177; 76830; 80053; 81001; 81025; 83690; 84703; 85025; 85379; 86140; 93976; 96374; 96375; 99284; 99285; J1885; J2405; J3010; J7120; Q9967

== ENCOUNTER 2025-06-25 16:37 | Emergency (ER) | payer BC, SELFPAY ==
[2025-06-25 16:59] VITALS: BP 103/80; PULSE 115; RESP 20; TEMP 37.4; O2SAT 99; BMI 17.4
--- NOTE | 2025-06-25 17:05 | CRLHL7_ITS ---
For Patients: As a result of the Century Cures Act, medical imaging exams and procedure reports are released immediately into your electronic medical record. You may view this report before your referring provider. If you have questions, please contact your health care provider. 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 Real-time sonographic images with spectral and color Doppler imaging of the ovaries were obtained. Comparison: Pelvic ultrasound and CT abdomen and pelvis 04/21/2025. Findings: Uterus: Size: 8.2 x 4.5 x 5.9 cm. Mass: No. Endometrium: Transvaginal imaging was performed to better evaluate the endometrium. Thickness: 2.6 mm. Mass or fluid collection: No. Right ovary: Size: 2.6 x 1.6 x 1.9 cm. Mass: No. Blood flow: Normal arterial and venous blood flow. Left ovary: Size: 2.5 x 1.1 x 2.0 cm. Mass: No. Blood flow: Normal arterial and venous blood flow. Cul-de-sac and adnexa: Significant free Fluid: No. Mass: No. Imaged parametrial vasculature appears patent. Prominent parametrial vessels are noted. Impression: Unremarkable pelvic ultrasound. Patent parametrial vessels where visualized. Dictated by Tonie Ellington MD @ 06/25/2025 7:14:26 PM (Electronically Signed)
--- NOTE | 2025-06-25 18:08 | ED.ABDPAIN ---
HPI - Abdominal Pain General Time Seen by Provider: 18:08 Date Seen: 06/25/25 Chief Complaint: Abdominal Pain Stated Complaint: Back and abdominal pain Time Seen by Provider: 06/25/25 18:08 Source: patient, RN notes reviewed and old records reviewed Mode of arrival: ambulatory Limitations: no limitations History of Present Illness HPI narrative: This 35-year-old female is coming to the ER with concerns of symptoms similar to April when she was diagnosed with an ovarian vein clot. She is taking her Eliquis twice a day but she is feeling similar symptoms to those when this was diagnosed in April. She has had diminished appetite, diarrhea, left flank pain. She feels numbness in the left upper leg and chills at times with this. These are all reminiscent of her symptoms in April. She was seen on April 21 for left-sided back pain/left flank pain that radiated down into her abdomen. She had had symptoms that had worsened over a week. She had went to clinic, had labs which were normal. She felt nauseated with this, had some sense of feeling warm. Patient does have a history of UTIs and pyelonephritis. Ultimately her workup showed a left-sided ovarian vein thrombophlebitis. 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 Patient did ultimately end up seen in another ED, workup redone and she was started on Eliquis. She did see Dr. Peralta in Hematology-Oncology on May 27. She has had a history of endometriosis, pelvic congestion syndrome and smoking and recommendation was made for concluding 3 months of anticoagulation, will be 07/23/2025. After that, there is plans to do a thrombophilia workup and D-dimer around 07/30/2025, 1 week after discontinuing the anticoagulation. Patient is adamant that she has been taking her Eliquis, has not missed any doses. Her symptoms have returned, she feels pain in the left flank through the abdomen, wraps around the hip area. It is the exact same symptoms that she felt when she was diagnosed with this in April. She denies any urinary symptoms. Patient has a history of pyelonephritis, congenital kidney anomaly, history of recurrent miscarriages, endometriosis. She has had a laparoscopy, bilateral salpingectomy, , prior D and C, prior LEEP. MD elicited complaint: abdominal pain and flank pain Related Data Patient : No (Status post tubal ligation but will ensure negative test) Home Medications ?Medication ?Instructions ?Recorded ?Confirmed acetaminophen 500 mg tablet 1,000 mg PO Q6H PRN 05/27/25 06/07/25 (Tylenol Extra Strength) psyllium husk 0.4 gram capsule 0.4 g PO BID 05/27/25 06/07/25 (Metamucil) apixaban 5 mg tablet (Eliquis) 5 mg PO BID 06/25/25 06/25/25 Previous Rx's ?Medication ?Instructions ?Recorded benzonatate 100 mg capsule 100 mg PO TID PRN cough #30 caps 06/07/25 Allergies Allergy/AdvReac Type Severity Reaction Status Date / Time clavulanic acid Allergy Mild Hives Verified 06/07/25 14:19 erythromycin base Allergy Mild Rash Verified 06/07/25 14:19 penicillin V Allergy Mild Hives Verified 06/07/25 14:19 Sulfa (Sulfonamide Allergy Mild Hives Verified 06/07/25 14:19 Antibiotics) Review of Systems Status of ROS Reports: 6 or more systems reviewed and unremarkable except as noted in History and below [facility] Medical History History of pyelonephritis ?Z87.448 - Personal history of other diseases of urinary system (ICD-10) Kidney anomaly, congenital ?Q63.9 - Congenital malformation of kidney, unspecified (ICD-10) Otitis media ?H66.90 - Otitis media, unspecified, unspecified ear (ICD-10) Viral upper respiratory infection ?J06.9 - Acute upper respiratory infection, unspecified (ICD-10) Strep pharyngitis ?J02.0 - Streptococcal pharyngitis (ICD-10) Cervical intraepithelial neoplasia grade 2 ?N87.1 - Moderate cervical dysplasia (ICD-10) 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 (ICD-10) History of anemia ?Z86.2 - Personal history of diseases of the blood and blood-forming organs and certain disorders involving the immune mechanism (ICD-10) Endometriosis determined by laparoscopy (11/2018) ?N80.9 - Endometriosis, unspecified (ICD-10) Depression ?F32.A - Depression, unspecified (ICD-10) Constipation ?K59.00 - Constipation, unspecified (ICD-10) Surgical History History of laparoscopy (11/13/18) ?Z98.890 - Other specified postprocedural states (ICD-10) History of bilateral salpingectomy (06/15/21) ?Z90.79 - Acquired absence of other genital organ(s) (ICD-10) Status post emergency section (03/17/21) ?Z98.891 - History of uterine scar from previous surgery (ICD-10) History of tooth extraction (2016) ?K08.409 - Partial loss of teeth, unspecified cause, unspecified class (ICD-10) History of loop electrosurgical excision procedure (LEEP) of cervix (06/01/17) ?Z98.890 - Other specified postprocedural states (ICD-10) History of dilation and curettage (07/22/19) ?Z98.890 - Other specified postprocedural states (ICD-10) History of breast biopsy (11/02/17) ?Z98.890 - Other specified postprocedural states (ICD-10) Family History Paternal Grandmother Breast cancer, Onset Age: 40 Uncle Diabetes Other Prostate cancer Social History Narrative: [employer]q-ac-hx[employer] mom. . tobacco use 8-9/ day x 14 years. No alcohol use. Smoking Status: Current every day smoker What tobacco products do you use: cigarettes Do you use any of these nicotine containing products: None Second hand tobacco smoke exposure: No How often do you have a drink containing alcohol: never AUDIT-C Alcohol total score: 0 Non-prescribed substance use: denies use service: No Exam Const: Vital Signs, click to edit/add: Vital Signs - 24 hr 06/25/25 16:59 Temperature 99.3 F Pulse Rate [Pulse Oximeter] 115 H Respiratory Rate 20 Blood Pressure [Ri ght Upper Arm] 103/80 Pulse Oximetry 99 Oxygen Delivery Me thod Room Air This 35-year-old female is alert, interactive, no apparent distress. She is changing into a gown when I come in, sits down on the bed easily and is able to get up on the bed. She is of slender frame. Sclera clear, speech normal, face atraumatic. Lungs are clear come good air entry, wheeze or crackles, no tachypnea, no accessory muscle use. CV slightly fast regular, no murmur, normal S1-S2, no S3-S4. Abdomen is slender, soft, no rebound or guarding, tenderness generally over on the left side but not on the right side. Do not feel any organomegaly or masses. She has no lower extremity edema, ambulating independently. Documenting provider has reviewed patient's vital signs: yes Course Course ED Course: Reviewed with patient that I do think we probably need to proceed with CT imaging as well as the pelvic ultrasound. The preliminary on the pelvic ultrasound which was ordered pending patient getting a room due to the volume and acuity in the ED. The preliminary in the pelvic ultrasound is reassuring, no pathology seen. Patient is hesitant to do CT imaging. We will check baseline labs, look at CBC least. She does complain of feeling chilled now. Will see where her white count and labs are. I am unclear really what a complication of a ovarian vein thrombus would necessarily be. She did try Tylenol has not helped. May need to initiate pain medicine for her. Reevaluation(s) Time of Reevaluation #1: 19:52 Reevaluation #1: Have reviewed ultrasound report with patient. Interestingly they do comment that there is normal arterial and venous flow to the left ovary on this. The pelvic ultrasound is normal. Her CBC and comprehensive metabolic panel are normal, C reactive protein is less than 0.5. Lactate was normal at 0.8. We are waiting urinalysis in confirming negative urine test, patient just was able to provide a sample. We did give her a 1 time dose of IV Toradol, this is helped her pain. Will await urinalysis. Patient is inclined to not do any CT imaging. It is unclear exactly why she was having pain in where it is coming from but her ultrasound and labs to this point are certainly very reassuring. Time of Reevaluation #2: 20:48 Reevaluation #2: Have reviewed normal urinalysis, confirmed negative test with patient. We have reviewed the normal labs, the reassuring pelvic ultrasound. She really does not want to proceed with CT imaging. I do not have an idea of what her pain is. She still having moderate discomfort. It did discuss that it was tender with a few tablets of oxycodone but she needs follow-up. We definitely do not have an etiology necessarily. She states she was certainly will return if she feels she is worsening or there are new concerns, otherwise she will follow up in clinic. Vital Signs Vital signs: Initial Vital Signs Temperature 99.3 F 06/25/25 16:59 Temperature Source Temporal Artery Scan 06/25/25 16:59 Pulse Rate 115 H 06/25/25 16:59 Pulse Rhythm Regular 06/25/25 16:59 Respiratory Rate 20 06/25/25 16:59 Blood Pressure 103/80 06/25/25 16:59 Blood Pressure Mean 87 06/25/25 16:59 Pulse Oximetry 99 06/25/25 16:59 Oxygen Delivery Method Room Air 06/25/25 16:59 Vital Signs Temperature 99.3 F 06/25/25 16:59 Pulse Rate 115 H 06/25/25 16:59 Respiratory Rate 20 06/25/25 16:59 Blood Pressure 103/80 06/25/25 16:59 Pulse Oximetry 99 06/25/25 16:59 Oxygen Delivery Method Room Air 06/25/25 16:59 Temperature 99.3 F 06/25/25 16:59 Pulse Rate 115 H 06/25/25 16:59 Respiratory Rate 20 06/25/25 16:59 Blood Pressure 103/80 06/25/25 16:59 Pulse Oximetry 99 06/25/25 16:59 Oxygen Delivery Method Room Air 06/25/25 16:59 Medications Administered Medications: Discontinued Medications Generic Name Dose Route Start Last Admin Trade Name Freq PRN Reason Stop Dose Admin Sodium Chloride 1,000 mls @ 500 mls/hr 06/25/25 19:03 06/25/25 19:47 0.9 % Sodium Chloride 1000 Ml IV 06/25/25 21:02 Infused .Q2H VERONICA Infusion Ketorolac Tromethamine 15 mg 06/25/25 19:03 06/25/25 19:14 Ketorolac 15 Mg/Ml Inj IVP 06/25/25 19:04 15 mg ONCE ONE Administration MDM - Abdominal Pain Lab Data Attestation: I reviewed the patient's lab results. Labs: Lab Results 06/25/25 06/25/25 06/25/25 Range/Units 18:29 18:38 19:30 WBC 5.03 (4.50-11.00) K/uL RBC 4.38 (4.00-5.20) m/uL Hgb 12.7 (12.0-16.0) gm/dL Hct 38.9 (33.0-51.0) % MCV 89 (80-100) fL MCH 29 (26-34) pg MCHC 33 (32-36) gm/dL RDW Coeff of Bryce 12.5 (11.5-15.5) % Plt Count 265 (140-440) K/uL Neut % (Auto) 61.0 (42.0-72.0) % Lymph % (Auto) 29.4 (20-44) % [place] % (Auto) 7.2 (0.0-11.0) % Eos % (Auto) 1.8 (0.0-7.0) % Baso % (Auto) 0.6 (0.0-3.0) % Neut # (Auto) 3.07 (1.7-7.0) K/uL Lymph # (Auto) 1.48 (0.90-2.90) K/uL [place] # (Auto) 0.40 (0.00-0.90) K/UL Eos # (Auto) 0.09 (0.00-0.50) K/uL Baso # (Auto) 0.03 (0.00-0.30) K/uL Abs Immat Gran (auto) 0.00 (0.00-0.30) K/uL Imm/Tot Granulo (auto) 0.0 % Sodium 140 (135-149) mmol/L Potassium 3.7 (3.6-5.1) mmol/L Chloride 106 (96-114) mmol/L Carbon Dioxide 25 (20-32) mmol/L Anion Gap 9 (7-15) mEq/L BUN 8 (5-24) mg/dL Creatinine 0.7 (0.5-1.5) mg/dL Estimated Creat Clear 72.49 Estimated GFR 114 ml/min Glucose 89 (60-115) mg/dL Lactate 0.8 (0.5-1.9) mmol/L Calcium 8.8 (8.4-10.6) mg/dL Total Bilirubin 0.5 (0.1-1.5) mg/dL AST 20 (12-35) U/L ALT 10 (4-35) U/L Alkaline Phosphatase 41 (40-150) U/L C-Reactive Protein < 0.5 L (0.5-1.0) mg/dL Total Protein 7.8 (6.0-8.3) g/dL Albumin 4.7 (3.3-5.0) g/dL Urine Color Yellow (Yellow) Urine Appearance Clear (Clear) Urine pH 6.0 (5.0-8.5) Ur Specific [place] 1.020 (1.000-1.030) Urine Protein Negative (Negative) Urine Glucose (UA) Negative (Negative) Urine Ketones Negative (Negative) Urine Blood 1+ A (Negative) Urine Nitrite Negative (Negative) Urine Bilirubin Negative (Negative) Urine Urobilinogen 0.2 (0.2-1.0) Ur Leukocyte Esterase Negative (Negative) Urine RBC 0-2 (0-2) Urine WBC 2-5 (0-5) Ur Squamous Epith Cells Few (None-Few) Urine Bacteria None (None) Urine HCG, Qual Negative (Negative) Imaging Data US pelvis: Attestation: I have reviewed the pertinent imaging results. Radiologist's impression: Patient: CECILIA GRANADOS Facility:?[facility] Patient ID:?[id number] Site Patient ID:?[id number]. 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 Real-time sonographic images with spectral and color Doppler imaging of the ovaries were obtained. Comparison: Pelvic ultrasound and CT abdomen and pelvis 04/21/2025. Findings: Uterus: Size: 8.2 x 4.5 x 5.9 cm. Mass: No. Endometrium: Transvaginal imaging was performed to better evaluate the endometrium. Thickness: 2.6 mm. Mass or fluid collection: No. Right ovary: Size: 2.6 x 1.6 x 1.9 cm. Mass: No. Blood flow: Normal arterial and venous blood flow. Left ovary: Size: 2.5 x 1.1 x 2.0 cm. Mass: No. Blood flow: Normal arterial and venous blood flow. Cul-de-sac and adnexa: Significant free Fluid: No. Mass: No. Imaged parametrial vasculature appears patent. Prominent parametrial vessels are noted. Impression: Unremarkable pelvic ultrasound. Patent parametrial vessels where visualized. Dictated by Tonie Ellington MD @ 06/25/2025 7:14:26 PM (Electronic Signature) Discharge Plan Discharge Clinical Impression: Left sided abdominal pain Patient Disposition: Home, Self-Care Condition: Stable Instructions: Abdominal Pain (ED) Additional Instructions: Continue taking Eliquis twice a day until you have completed the 3 month treatment for the left ovarian vein thrombophlebitis. Can use Tylenol 1000 mg up to 3 or 4 times a day as needed for discomfort. For severe pain, can use oxycodone 5 mg, 1 tablet every 6 hours, for provided from [employer]. Please schedule a clinic followup for recheck. Otherwise, if your noting worsening symptoms, start vomiting or have fever with worsening abdominal pain, need to seek re-evaluation and consider CT imaging. If you note new or other concerning symptoms, would advise you to be re-evaluated as well. Activity Level: Activity as Tolerated Prescriptions: No Action acetaminophen [Tylenol Extra Strength] 500 mg tablet 1,000 mg PO Q6H PRN psyllium husk [Metamucil] 0.4 gram capsule 0.4 g PO BID benzonatate 100 mg capsule 100 mg PO TID PRN (Reason: cough) Qty: 30 0RF Eliquis 5 mg tablet 5 mg PO BID Follow Up/Referrals: Deandra Montaño MD [Primary Care Provider, Family Practice] Stand Alone Forms: [employer] Info Instructions
[2025-06-25 18:49] LABS: Lactate* 0.8 mmol/L (0.5-1.9)
[2025-06-25 18:50] LABS: Hematocrit* 38.9 % (33.0-51.0); Hemoglobin* 12.7 gm/dL (12.0-16.0); Immature Granulocytes Abs Auto 0.00 K/uL (0.00-0.30); Immature Granulocytes Pct Auto 0.0 %; Lymphocytes Absolute Auto 1.48 K/uL (0.90-2.90); Mean Corpuscular HGB Conc 33 gm/dL (32-36); Mean Corpuscular Hemoglobin 29 pg (26-34); Mean Corpuscular Volume 89 fL (80-100); RDW Coefficient of Variation % 12.5 % (11.5-15.5); Red Blood Count* 4.38 m/uL (4.00-5.20); White Blood Count* 5.03 K/uL (4.50-11.00)
[2025-06-25 18:51] LABS: Slide Review Reflex No
[2025-06-25 19:06] LABS: Chloride* 106 mmol/L (96-114)
[2025-06-25 19:07] LABS: Albumin* 4.7 g/dL (3.3-5.0); Potassium* 3.7 mmol/L (3.6-5.1); Sodium* 140 mmol/L (135-149)
[2025-06-25 19:09] LABS: Alanine Aminotransferase* 10 U/L (4-35); Aspartate Amino Transferase* 20 U/L (12-35); Blood Urea Nitrogen* 8 mg/dL (5-24); Creatinine* 0.7 mg/dL (0.5-1.5); Est. Creatinine Clearance* 72.49; Estimated Glomerular Filt Rate 114 ml/min
[2025-06-25 19:10] LABS: Alkaline Phosphatase* 41 U/L (40-150); Anion Gap 9 mEq/L (7-15); Bilirubin Total* 0.5 mg/dL (0.1-1.5); Calcium* 8.8 mg/dL (8.4-10.6); Carbon Dioxide* 25 mmol/L (20-32); Glucose* 89 mg/dL (60-115); Total Protein* 7.8 g/dL (6.0-8.3)
[2025-06-25 20:00] LABS: Appearance Urine Clear (Clear)
[2025-06-25 20:01] LABS: Ur HCG Qualitative* Negative (Negative)
== END 2025-06-25 21:06 | disposition home or self-care (01) ==
PROVIDERS: Emergency Provider Family Medicine; PCP Family Medicine
DX: R10.9 Unspecified abdominal pain (principal); I82.890 Acute embolism and thrombosis of other specified veins
CPT/HCPCS: 36415; 76830; 76856; 80053; 81001; 81025; 83605; 85025; 86140; 93976; 96374; 99284; J1885; J7030

== ENCOUNTER 2025-07-20 12:48 | Outpatient (CLI) | payer BC, SELFPAY | END 2025-07-20 12:49 | disposition home or self-care (01) | LOC: NFLDREF 07-31 01:39 | PROVIDERS: PCP Family Medicine; Referring Provider Family Medicine | DX: N30.01 Acute cystitis with hematuria (principal) | CPT/HCPCS: 87086 ==